=== PATIENT | male | born 1970 | race Two or more races ===

== ENCOUNTER 2024-03-12 18:26 | Inpatient (IN) | payer MEDICAID, OTHER ==
[~2024-03-12] VITALS: Ht 165.1 cm; Wt 62.4 kg
--- NOTE | 2024-03-12 19:52 | ED.PDOC ---
GI ASSESSMENT HPI Comments HPI: Poor Historian. 53-year-old homeless male presents to the emergency department for evaluation of two day history of periumbilical abdominal pain constant nonradiating with the associated nausea vomiting and diarrhea nonbloody nonbilious. He states the vomit is food content and the diarrhea is yellow in color. Denies any alleviating or precipitating factors. VITALS: Temp: 98.0 F RR: 16 02 sat : 98 % on room air HR: 93 BP: 125/90 PMH: denies PSH: denies Social history: endorses tobacco use, denies ETOH use, denies drug use Medications: denies Allergies: denies REVIEW OF SYSTEMS: CONSTITUTIONAL: Denies acute: fever, diaphoresis, chills, generalized weakness. HEAD: Denies acute: headache, photophobia Eyes: Denies acute: Double vision, vision loss, eye pain, eye discharge. EARS: Denies acute: tinnitus, hearing loss, ear discharge, ear pain, THROAT: Denies acute: sore throat, swelling, difficulty swallowing , pain with swa llowing, change in voice. NECK: Denies acute: neck pain, neck swelling, stiff neck. HEART: Denies acute : chest pain, palpitations, LUNGS: Denies acute: SOB, wheezing, cough, hemoptysis ABDOMEN: Denies acute: , melena , hematemesis, hematochezia SKIN: Denies acute: rash, redness, lesions, itchiness. EXTREMITIES: Denies acute: calf pain, numbness, tingling, weakness, denies pain in extremity. Denies acute: Low back pain. Neuro: Denies acute: focal neurological deficit, motor or sensory focal neurological deficit, tremors, seizure like activity, confusion, dizziness, change in mental status, loss of bowel or bladder function, cauda equina like symptoms. : Denies acute: dysuria, hematuria, flank pain, increase in urinary frequency. PSYCH: Denies acute: hallucination, suicidal ideation, homicidal ideation. PHYSICAL EXAM: General: no acute distress, awake and alert. Head: normocephalic, atraumatic. Neck: supple, trachea is midline, no swelling. Throat: Normal phonation. Eyes:, no erythema, no purulent discharge, no proptosis, no icterus. Heart: regular rate, regular rhythm, no significant murmur appreciated. Lungs: no apparent respiratory distress, Able to speak in full sentences. No wheezing, no rhonchi, no crackles. No stridors Clear to auscultation bilaterally. Abdomen: Periumbilical tender to palpation, non distended, soft, no guarding, no rebound, + bowel sounds. Neuro: Awake, Alert, oriented to name, self, situation, follows commands GCS=15. Speech is normal. Skin: no petechia, no purpura, no cyanosis, non-pale, not jaundice. Lower extremities: --no - Pitting edema no deformity, no focal swelling, no calf TTP. Makes eye contact. moves all four extremities. Face: no apparent facial droop. Ambulating in the ED independently. Chief Complaint: Abdominal Pain Time Seen by MD: 18:53 Reviewed Notes: Nurses Notes, Medications, Allergies Allergies: Coded Allergies: NO KNOWN ALLERGIES (Unverified , 03/12/24) Information Source: Patient Mode of Arrival: Ambulatory Was a procedure done? Was a procedure done?: No X-Ray, Labs, Meds, VS Vital Signs Date Time Temp Pulse Resp B/P (MAP) Pulse Ox O2 Delivery O2 Flow Rate FiO2 03/12/24 19:29 98.0 93 16 125/90 (102) 98 Lab Test 03/12/24 20:14 Range/Units White Blood Count Pending Red Blood Count Pending Hemoglobin Pending Hematocrit Pending Mean Corpuscular Volume Pending Mean Corpuscular Hemoglobin Pending Mean Corpuscular Hemoglobin Concent Pending Red Cell Distribution Width Pending Platelet Count Pending Mean Platelet Volume Pending Neutrophils (%) (Auto) Pending Lymphocytes (%) (Auto) Pending Monocytes (%) (Auto) Pending Basophils (%) (Auto) Pending Neutrophils # (Auto) Pending Lymphocytes # (Auto) Pending Monocytes # (Auto) Pending Sodium Level Pending Potassium Level Pending Chloride Level Pending Carbon Dioxide Level Pending Anion Gap Pending Blood Urea Nitrogen Pending Creatinine Pending Glomerular Filtration Rate Calc Pending BUN/Creatinine Ratio Pending Serum Glucose Pending Lactic Acid Level Pending Calcium Level Pending Total Bilirubin Pending Aspartate Amino Transferase (AST) Pending Alanine Aminotransferase (ALT) Pending Alkaline Phosphatase Pending Troponin I High Sensitivity Pending Total Protein Pending Albumin Pending Lipase Pending [address] - [address] Ph: [phone] DIAGNOSTIC IMAGING Diagnostic Imaging Report : [id number] Signed PATIENT: FOSTER LAST ACCT: [id number] UNIT: [id number] : 1970 LOC: ER ROOM / BED: / AGE / SEX: 53 / M ADM STATUS: REG ER SERVICE 28 ORDERING PHYSICIAN: MOE LOPEZ DO PROCEDURE(s): ABPL - CT AB PEL WO CON-NO ORAL OR IV REASON: abd pain ORDER NUMBER(s): [id number], ACCESSION NUMBER(s): [id number] Exam: CT CT AB PEL WO CON-NO ORAL OR IV History: abd pain Comparison Study: None available at time of dictation. TECHNIQUE: Multidetector CT of the abdomen and pelvis without contrast. Axial, coronal and sagittal multiplanar reformats were obtained from the axial data set by the technologist. Radiation Dose Information: CT Dose: CTDI volume is 5.74 mGy. Dose-length product is 321.93 mGy*cm FINDINGS: The lung bases are clear. Partially visualized heart is unremarkable. Trace pericardial effusion. Liver, spleen, gallbladder, pancreas and adrenal glands are unremarkable. Punctate nonobstructing bilateral renal calculi. Mild left pelviectasis. Otherwise, kidneys, and ureters unremarkable. Wall thickening of the urinary bladder. Prostate measures 3.6 x 5 x 3.6 cm . Stomach is unremarkable. Fluid-filled mildly distended mid small bowel loops measuring up to 3.2 cm with no definite transition point. Appendix is not definitely visualized. Gas-filled nondistended transverse colon with fluid- filled nondistended cecum and ascending colon. No evidence of intraperitoneal free air or free fluid. No evidence of aortic aneurysm. No significant mesenteric lymphadenopathy. The soft tissues unremarkable. No destructive osseous lesions are noted. IMPRESSION: Significant wall thickening of the urinary bladder most prominent anteriorly . Correlate for neoplasm versus cystitis. Fluid-filled mildly distended mid small bowel loops measuring up to 3.2 cm with no definite transition point which may be due to ileus / bowel obstruction. Punctate nonobstructing bilateral renal calculi with mild left pelviectasis. No obstructing calculus is noted. This Appendix is not definitely visualized. Without visualization of the appendix, can not exclude acute appendicitis. ATED BY: LISA PALACIOS DO DICTATED DATE/TIME: 03/12/242013 SIGNED BY: LISA PALACIOS DO SIGNED DATE/TIME: 03/12/242013 CC: Time of 1ST Reevaluation: 20:28 Reevaluation 1ST: Improved Patient Education/Counseling: Diagnosis, Treatment Family Education/Counseling: No Family Present Comments Based on CT scan findings, patient will be admitted to the hospital for surgical consultation MDM: Patient presented with the above HPI.----- abdominal pain -workup was initiated. patient was found with the above mentioned diagnosis. the following medications were ordered: zofran, IV fluids, the following tests were ordered: troponin x3, EKG x1, UA, lipase, drug screen, lactic acid, CBC, CMP, CT abdomen and pelvis w/o contrast Patient ED course and VS have been stabilized. Patient has been reassessed in the ED and remained in a stable condition. Patient has been observed in the ED adequate length of time to insure improvement/stability. Escalation of care considered: Consideration of escalation to observation or admission. patient was ADMITTED to the medicine team for further evaluation and treatment of their presentation. All the reports of any imaging studies that were ordered by myself were reviewed by myself. Departure 1 Departure Time of Disposition: 20:26 Impression: Primary Impression: Abdominal pain Additional Impressions: Abnormal finding on CT scan Nausea and vomiting Homelessness Disposition: ADMITTED INPATIENT Admit to: Tele Condition: Guarded Discharged With: Self I personally scribed for MOE LOPEZ DO ([email or web address]) on 03/12/24 at 19:52. Electronically submitted by Caleb Broussard (IRIS). I personally scribed for MOE LOPEZ DO ([email or web address]) on 03/12/24 at 20:48. Electronically submitted by Caleb Broussard (IRIS). OME LOPEZ DO Mar 12, 2024 19:52
--- NOTE | 2024-03-12 20:16 | DVH ---
Exam: CT CT AB PEL WO CON-NO ORAL OR IV History: abd pain Comparison Study: None available at time of dictation. TECHNIQUE: Multidetector CT of the abdomen and pelvis without contrast. Axial, coronal and sagittal m ultiplanar reformats were obtained from the axial data set by the technologist. Radiation Dose Information: CT Dose: CTDI volume is 5.74 mGy. Dose-length product is 321.93 mGy*cm FINDINGS: The lung bases are clear. Partially visualized heart is unremarkable. Trace pericardial effusion. Liver, spleen, gallbladder, pancreas and adrenal glands are unremarkable. Punctate nonobstructing bilateral renal calculi. Mild left pelviectasis. Otherwise, kidneys, and uret ers unremarkable. Wall thickening of the urinary bladder. Prostate measures 3.6 x 5 x 3.6 cm . Stomach is unremarkable. Fluid-filled mildly distended mid small bowel loops measuring up to 3.2 cm with no definite transition point. Appendix is not definitely visualized. Gas-filled nondistended tra nsverse colon with fluid-filled nondistended cecum and ascending colon. No evidence of intraperitoneal free air or free fluid. No evidence of aortic aneurysm. No significant mesenteric lymphadenopathy. The soft tissues unremarkable. No destructive osseous lesions are noted. IMPRESSION: Significant wall thickening of the urinary bladder most prominent anteriorly . Correlate for neoplas m versus cystitis. Fluid-filled mildly distended mid small bowel loops measuring up to 3.2 cm with no definite transiti on point which may be due to ileus / bowel obstruction. Punctate nonobstructing bilateral renal calculi with mild left pelviectasis. No obstructing calculus is noted. This Appendix is not definitely visualized. Without visualization of the appendix, can not exclude acute appendicitis.
[2024-03-12 20:49] LABS: Basophils # (auto) 0 10 ^3/uL (0-0.2); Basophils % (auto) 0.4 % (0.0-2.0); Eosinophils # (auto) 0.2 10 ^3/uL (0-0.8); Eosinophils % (auto) 2.3 % (0.0-7.0); Hematocrit 45.1 % (41.0-53.0); Hemoglobin 14.9 g/dL (13.5-17.5); Lymphocytes # (auto) 2.4 10 ^3/uL (0.4-5.4); Lymphocytes % (auto) 28.6 % (10.0-50.0); Mean Corpuscular Hemoglobin 27.4 pg (28.0-32.0); Mean Corpuscular Hgb Conc. 33.1 g/dL (32.0-36.0); Mean Corpuscular Volume 82.7 fL (80.0-100.0); Monocytes # (auto) 0.8 10 ^3/uL (0-1.3); Monocytes % (auto) 9.5 % (0.0-12.0); Neutrophils # (auto) 4.9 10 ^3/uL (1.6-8.6); Neutrophils % (auto) 59.2 % (37.0-80.0); Platelet Count (auto) 317 10^3/uL (140-450); Red Blood Cells 5.45 10^6/uL (4.5-5.90); Red Cell Distribution Width 13.3 % (11.8-14.3); White Blood Cell 8.3 10^3/uL (4.4-10.8)
[2024-03-12 21:05] LABS: Alanine Aminotransferase 39 U/L (7-40); Alkaline Phosphatase 106 U/L (46-116); Anion Gap 9 (5-15); BUN/Creatinine Ratio 23.5 (10.0-20.0); Blood Urea Nitrogen 19 mg/dL (9-23); Calcium 9.4 mg/dL (8.7-10.4); Carbon Dioxide 23 mmol/L (20-31); Chloride 103 mmol/L (98-107); Potassium 3.8 mmol/L (3.5-5.1)
[2024-03-12 21:06] LABS: Albumin 4.1 g/dL (3.2-4.8); Aspartate Aminotransferase 23 U/L (13-40); Bilirubin, Total 0.5 mg/dL (0.2-1.0)
[2024-03-12 21:08] LABS: Glucose 118 mg/dL (74-106); Sodium 135 mmol/L (136-145)
[2024-03-12 21:35] LABS: Lipase 36 U/L (12-53)
[2024-03-13] MEDS: SODIUM CHLORIDE 0.9% 1,000 ML IV ONE (00:34)
[2024-03-13] MEDS: ONDANSETRON HCL 4 MG/2 ML VIAL IV ONE (00:38)
[2024-03-13 02:02] VITALS: PULSE 92; RESP 30; O2SAT 100
[2024-03-13 03:00] LABS: Urine WBC None Seen /hpf (0 - 3)
[2024-03-13] MEDS ORDERED: ACETAMINOPHEN 325 MG TAB PO PRN (03:00)
[2024-03-13] MEDS ORDERED: MORPHINE SULFATE INJ 2 MG/ml SYRG IV PRN ×2 (03:00)
[2024-03-13] MEDS ORDERED: NITROGLYCERIN 0.4 MG SL TAB SL PRN (03:00)
[2024-03-13] MEDS ORDERED: ONDANSETRON HCL 4 MG/2 ML VIAL IV PRN (03:00)
[2024-03-13] MEDS ORDERED: DOCUSATE SOD 100 MG CAP PO PRN (03:00)
[2024-03-13] MEDS ORDERED: HYDROcodone-ACET 5/325MG TAB PO PRN (03:00)
--- NOTE | 2024-03-13 03:10 | DVHHP2 ---
History of Present Illness Reason for Visit: Acute abdominal pain History of Present Illness The patient is a 53-year-old male who denies past medical history presented to [facility] ED with complaint of acute abdominal pain. Patient reports symptoms progressively get worse with periumbilical abdominal pain, constant, nonradiating associated nausea, vomiting, diarrhea, getting worse today that prompted this visit. Patient was seen and evaluated in the ED, laboratory data shows WBC 8.3, platelets 317, sodium 135, potassium 3.8, BUN 19, creatinine 0.81, glucose 118, troponin 3, lipase 36, blood pressure 146/89, heart rate 85, temperature 98.5 F, O2 saturation 99% on room air. Abdomen/pelvis CT revealing wall thickening of the urinary bladder most prominent anteriorly, correlate for neoplasm versus cystitis; fluid-filled mildly distended mild small bowel loops measuring up to 3.2 cm with no definite transition point which may be due to ileus/bowel obstruction. Please see medication orders section in the computer. On my assessment, patient denied chest pain, no headache, no dizziness, no shortness of breath, abdominal pain, diarrhea, nausea or vomiting at this moment, no fever, no chills. Patient was admitted for further evaluation and medical management. Past Medical History Denies past medical history Past Surgical History Denies all surgeries Family History Reviewed, noncontributory to the management of this case. Past Social History The patient lives at home, denies smoking, alcohol or illicit drugs abuse. Review of Systems Constitutional: No: Fever, Chills, Sweats, Weakness, Malaise, Other Eyes: No: Pain, Vision change, Conjunctivae inflammation, Eyelid inflammation, Other, Redness ENT: No: Ear pain, Ear discharge, Nose pain, Nose discharge, Nose congestion, M outh pain, Mouth swelling, Throat pain, Throat swelling, Other Respiratory: No: Cough, Dry, Shortness of breath, SOB with excertion, Wheezing, Hemoptysis, Pleuritic Pain, Sputum, Wheezing, Other Cardiovascular: No: Chest Pain, Palpitations, Orthopnea, Paroxysmal Noc. Dyspnea, Edema, Lt Headedness, Other Gastrointestinal: Nausea, Vomiting, Abdominal Pain, Diarrhea; No: Constipation, Melena, Hematochezia, Other Genitourinary: No Dysuria, No Frequency, No Incontinence, No Hematuria, No R etention, No Other Musculoskeletal: No: other, neck pain, shoulder pain, arm pain, back pain, hand pain, leg pain, foot pain Skin: No: Rash, Lesions, Jaundice, Bruising, Other Neurological: No: Weakness, Numbness, Incoordination, Change in speech, Confusion, Seizures, Other Allergies: Coded Allergies: NO KNOWN ALLERGIES (Unverified , 03/12/24) Exam Vital Signs Vital Signs Date Time Temp Pulse Resp B/P (MAP) Pulse Ox O2 Delivery O2 Flow Rate FiO2 03/13/24 00:28 85 18 99 Room Air 03/13/24 00:28 98.5 146/89 (108) 98.5 General Appearance: Alert, Oriented X3, Cooperative, No acute distress HEENT: Atraumatic, PERRLA, EOMI, Mucous membr. moist/pink Respiratory: Clear to auscultation, Normal air movement Cardiovascular: Regular rate, Normal S1, Normal S2, No murmurs Abdominal: Normal bowel sounds, Soft, No hepatospenomegaly, No masses, Other (Reports tenderness) Extremities: No clubbing, No cyanosis, No edema, Normal pulses, No tenderness/swelling Skin: No rashes, No breakdown, No significant lesion Neuro: Normal gait, Normal speech, Strength at 5/5 X4 ext, Normal tone, Sensation intact, Cranial nerves 3-12 NL, Reflexes 2+ Psych/Mental Status: Mental status NL, Mood NL Labs/Xrays Labs Test 03/13/24 01:24 03/12/24 20:14 Range/Units Troponin I High Sensitivity < 3 L </=54 ng/L White Blood Count 8.3 4.4-10.8 10^3/uL Red Blood Count 5.45 4.5-5.90 10^6/uL Hemoglobin 14.9 13.5-17.5 g/dL Hematocrit 45.1 41.0-53.0 % Mean Corpuscular Volume 82.7 80.0-100.0 fL Mean Corpuscular Hemoglobin 27.4 L 28.0-32.0 pg Mean Corpuscular Hemoglobin Concent 33.1 32.0-36.0 g/dL Red Cell Distribution Width 13.3 11.8-14.3 % Platelet Count 317 140-450 10^3/uL Mean Platelet Volume 7.2 6.9-10.8 fL Neutrophils (%) (Auto) 59.2 37.0-80.0 % Lymphocytes (%) (Auto) 28.6 10.0-50.0 % Monocytes (%) (Auto) 9.5 0.0-12.0 % Eosinophils (%) (Auto) 2.3 0.0-7.0 % Basophils (%) (Auto) 0.4 0.0-2.0 % Neutrophils # (Auto) 4.9 1.6-8.6 10 ^3/uL Lymphocytes # (Auto) 2.4 0.4-5.4 10 ^3/uL Monocytes # (Auto) 0.8 0-1.3 10 ^3/uL Eosinophils # (Auto) 0.2 0-0.8 10 ^3/uL Basophils # (Auto) 0 0-0.2 10 ^3/uL Nucleated Red Blood Cells 0.0 % Sodium Level 135 L 136-145 mmol/L Potassium Level 3.8 3.5-5.1 mmol/L Chloride Level 103 98-107 mmol/L Carbon Dioxide Level 23 20-31 mmol/L Anion Gap 9 5-15 Blood Urea Nitrogen 19 9-23 mg/dL Creatinine 0.81 0.700-1.30 mg/dL Glomerular Filtration Rate Calc 107 >90 mL/min BUN/Creatinine Ratio 23.5 H 10.0-20.0 Serum Glucose 118 H 74-106 mg/dL Lactic Acid Level 2.0 0.4-2.0 mmol/L Calcium Level 9.4 8.7-10.4 mg/dL Total Bilirubin 0.5 0.2-1.0 mg/dL Aspartate Amino Transferase (AST) 23 13-40 U/L Alanine Aminotransferase (ALT) 39 7-40 U/L Alkaline Phosphatase 106 46-116 U/L Total Protein 6.0 5.7-8.2 g/dL Albumin 4.1 3.2-4.8 g/dL Lipase 36 12-53 U/L PATIENT: FOSTER LAST ACCT: [id number] UNIT: [id number] : 1970 LOC: ER ROOM / BED: / AGE / SEX: 53 / M ADM STATUS: REG ER SERVICE 28 ORDERING PHYSICIAN: MOE LOPEZ DO PROCEDURE(s): ABPL - CT AB PEL WO CON-NO ORAL OR IV REASON: abd pain ORDER NUMBER(s): [id number], ACCESSION NUMBER(s): [id number] Exam: CT CT AB PEL WO CON-NO ORAL OR IV History: abd pain Comparison Study: None available at time of dictation. TECHNIQUE: Multidetector CT of the abdomen and pelvis without contrast. Axial, coronal and sagittal multiplanar reformats were obtained from the axial data set by the technologist. Radiation Dose Information: CT Dose: CTDI volume is 5.74 mGy. Dose-length product is 321.93 mGy*cm FINDINGS: The lung bases are clear. Partially visualized heart is unremarkable. Trace pericardial effusion. Liver, spleen, gallbladder, pancreas and adrenal glands are unremarkable. Punctate nonobstructing bilateral renal calculi. Mild left pelviectasis. Otherwise, kidneys, and ureters unremarkable. Wall thickening of the urinary bladder. Prostate measures 3.6 x 5 x 3.6 cm . Stomach is unremarkable. Fluid-filled mildly distended mid small bowel loops measuring up to 3.2 cm with no definite transition point. Appendix is not definitely visualized. Gas-filled nondistended transverse colon with fluid-f illed nondistended cecum and ascending colon. No evidence of intraperitoneal free air or free fluid. No evidence of aortic aneurysm. No significant mesenteric lymphadenopathy. The soft tissues unremarkable. No destructive osseous lesions are noted. IMPRESSION: Significant wall thickening of the urinary bladder most prominent anteriorly. Correlate for neoplasm versus cystitis. Fluid-filled mildly distended mid small bowel loops measuring up to 3.2 cm with no definite transition point which may be due to ileus / bowel obstruction. Punctate nonobstructing bilateral renal calculi with mild left pelviectasis. No obstructing calculus is noted. This Appendix is not definitely visualized. Without visualization of the appendix, can not exclude acute appendicitis. Assessment/Plan Assessment/Plan Acute abdominal pain Homelessness Nausea and vomiting Plan 1. Admit to med surge unit 2. Breathing treatment 3. Pain control management 4. Management of fluids and electrolytes 5. Consultation for hospitalist 6. Diagnostic tests abdomen/pelvis CT 7. DVT prophylaxis-on SCDs 8. Repeat labs CBC, CMP in a.m. 9. Continue with current medical management 10. Treatment plan discussed with patient and RN. Patient verbalized understanding. Plan discussed with: Patient, Other (RN) My Orders Orders - MALIA TORRES DNP Procedure Category Date Status Time Complete Blood Count LAB 03/13/24 Transmitted 04:00 Comprehensive LAB 03/13/24 Transmitted Metabolic Panel 04:00 Admit ADMIT 03/13/24 Transmitted 02:50 Allergies CONSTANTIN 03/13/24 Transmitted 02:50 Code Status CODE 03/13/24 Transmitted 02:50 0.9% Ns 1000 Ml PHA 03/13/24 Transmitted 03:00 Oxygen Per Hour RT 03/13/24 Transmitted 02:50 Hydrocodone-Acet PHA 03/13/24 Transmitted 5/325mg Tab ([place] 03:00 Ondansetron Hcl PHA 03/13/24 Transmitted (Zofran) 03:00 Docusate Sodium PHA 03/13/24 Transmitted Capsule (Colace 03:00 Complete Blood Count LAB 03/14/24 Verified 04:00 Comprehensive LAB 03/14/24 Verified Metabolic Panel 04:00 Condition: Serious CONSTANTIN 03/13/24 Transmitted 02:50 Acetaminophen Tablet PHA 03/13/24 Transmitted (Tylenol Tablet) 03:00 Clear Liq Diet DIET 03/13/24 Transmitted Breakfast Bedrest With Bathroom CONSTANTIN 03/13/24 Transmitted Privileg 02:50 Morphine Sulfate PHA 03/13/24 Transmitted Injection 03:00 Sequential CONSTANTIN 03/13/24 Transmitted Compression Device Nitroglycerin PHA 03/13/24 Transmitted Sublingual (Ntrostat 03:00 Morphine Sulfate PHA 03/13/24 Transmitted Injection 03:00 Notify Of Changes [facility] 03/13/24 Transmitted From Base 02:50 Emergency Dysrhythmia [facility] 03/13/24 Transmitted Protocol 02:50 Oxygen By Nasal RT 03/13/24 Transmitted Cannula 02:50 Problem List: (1) Acute abdominal pain (2) Homelessness (3) Nausea and vomiting Date of Service: Mar 13, 2024 Billing Provider: MALIA TORRES DNP Common Visit Codes: [id number] INP/OBS CARE (MOD) MALIA TORRES DNP Mar 13, 2024 03:10
[2024-03-13 03:12] LABS: Urine Bacteria FEW /hpf (None Seen); Urine Blood Negative /uL (Negative); Urine Clarity Clear (Clear); Urine Color Colorless (Yellow); Urine Protein, UAD Negative (Negative); Urine Specific Gravity 1.004 (1.001-1.035); Urine Urobilinogen Normal (Negative)
[2024-03-13] MEDS: SODIUM CHLORIDE 0.9% 1,000 ML IV SCH (03:15)
[2024-03-13 03:28] LABS: Amphetamine Screen, Urine Neg (NEGATIVE)
[2024-03-13 03:30] LABS: Barbiturate Scree,Urine Neg (NEGATIVE); Benzodiazephine Screen, Urine Neg (NEGATIVE); Cannabinoid Screen, Urine Neg (NEGATIVE); Cocaine Screen, Urine Neg (NEGATIVE); Opiate Scree,Urine Neg (NEGATIVE); Phencyclidine Screen, Urine Neg (NEGATIVE)
[2024-03-13 04:56] LABS: Basophils # (auto) 0 10 ^3/uL (0-0.2); Basophils % (auto) 0.7 % (0.0-2.0); Eosinophils # (auto) 0.4 10 ^3/uL (0-0.8); Eosinophils % (auto) 6.1 % (0.0-7.0); Hematocrit 41.7 % (41.0-53.0); Hemoglobin 13.7 g/dL (13.5-17.5); Lymphocytes # (auto) 2.2 10 ^3/uL (0.4-5.4); Lymphocytes % (auto) 32.9 % (10.0-50.0); Mean Corpuscular Hemoglobin 27.6 pg (28.0-32.0); Mean Corpuscular Hgb Conc. 32.8 g/dL (32.0-36.0); Monocytes # (auto) 0.7 10 ^3/uL (0-1.3); Monocytes % (auto) 10.6 % (0.0-12.0); Neutrophils # (auto) 3.4 10 ^3/uL (1.6-8.6); Neutrophils % (auto) 49.7 % (37.0-80.0); Nucleated Red Blood Cells % 0.3 %; Platelet Count (auto) 273 10^3/uL (140-450); Red Blood Cells 4.97 10^6/uL (4.5-5.90); Red Cell Distribution Width 13.6 % (11.8-14.3); White Blood Cell 6.8 10^3/uL (4.4-10.8)
[2024-03-13 05:48] LABS: Alanine Aminotransferase 31 U/L (7-40); Alkaline Phosphatase 93 U/L (46-116); Calcium 8.9 mg/dL (8.7-10.4); Potassium 3.5 mmol/L (3.5-5.1)
[2024-03-13 05:49] LABS: Albumin 3.6 g/dL (3.2-4.8); Aspartate Aminotransferase 17 U/L (13-40); Sodium 139 mmol/L (136-145)
[2024-03-13 06:02] LABS: Anion Gap 12 (5-15)
[2024-03-13 06:04] LABS: Bilirubin, Total 0.3 mg/dL (0.2-1.0); Carbon Dioxide 18 mmol/L (20-31); Chloride 109 mmol/L (98-107); Glucose 115 mg/dL (74-106); Total Protein 5.3 g/dL (5.7-8.2)
[2024-03-13 06:18] LABS: BUN/Creatinine Ratio 14.1 (10.0-20.0); Blood Urea Nitrogen 10 mg/dL (9-23)
[2024-03-13 06:58] VITALS: BP 124/80; PULSE 73; RESP 16; TEMP 98.1; O2SAT 98
[2024-03-13 08:00] VITALS: PULSE 88; RESP 17; O2SAT 98
--- NOTE | 2024-03-13 13:17 | DVHPN2 ---
Subjective 53-year-old male with no past medical history was admitted for abdominal pain Workup here was negative He is homeless He feels better today Changes from previous H/P or p: Changes Eyes: No Pain, No Vision change, No Conjunctivae inflammation, No Eyelid inflammation, No Other, No Redness ENT: No Ear pain, No Ear discharge, No Nose pain, No Nose discharge, No Nose congestion, No Mouth pain, No Mouth swelling, No Throat pain, No Throat swelling, No Other Cardiovascular: No Chest Pain, No Palpitations, No Orthopnea, No Paroxysmal Noc. Dyspnea, No Edema, No Lt Headedness, No Other Respiratory: No Cough, No Dry, No Shortness of breath, No SOB with excertion, No Wheezing, No Hemoptysis, No Pleuritic Pain, No Sputum, No Other Gastrointestinal: Nausea, Vomiting, Abdominal Pain, Diarrhea; No Constipation, No Melena, No Hematochezia, No Other Genitourinary: No Dysuria, No Frequency, No Incontinence, No Hematuria, No Retention, No Other Musculoskeletal: No other, No neck pain, No shoulder pain, No arm pain, No back pain, No hand pain, No leg pain, No foot pain Skin: No Rash, No Lesions, No Jaundice, No Bruising, No Other Objective Vitals Vital Signs Date Time Temp Pulse Resp B/P (MAP) Pulse Ox O2 Delivery O2 Flow Rate FiO2 03/13/24 08:00 88 17 98 Room Air* 0 21 03/13/24 06:58 98.1 124/80 (95) 98.1 Intake/Output Intake and Output 03/13/24 07:00 Intake Total 1120 ml Balance 1120 ml Intake IV Total 1120 ml General Appearance: Alert, Oriented X3, Cooperative Lungs: Clear to auscultation Cardiovascular: Regular rate, Normal S1, Normal S2 Abdomen: Normal bowel sounds, Soft, No tenderness Extremities: No edema Medications Current Medications Medications Dose Ordered Sig/Bhaskar Route Start Time Stop Time Status Last Admin Dose Admin Sodium Chloride 1,000 ml @ 60 mls/hr [id number] IV 03/13/24 03:00 03/13/24 03:15 60 MLS/HR Acetaminophen/ Hydrocodone Bitart 1 tab Q4HP PRN PO 03/13/24 03:00 Ondansetron HCl 4 mg Q4HP PRN IV 03/13/24 03:00 Docusate Sodium 100 mg BIDPRN PRN PO 03/13/24 03:00 Acetaminophen 650 mg Q6HP PRN PO 03/13/24 03:00 Morphine Sulfate 2 mg Q4HPRN PRN IV 03/13/24 03:00 Nitroglycerin 0.4 mg Q5MINP PRN SL 03/13/24 03:00 Morphine Sulfate 2 mg Q30M PRN IV 03/13/24 03:00 Laboratory Results Laboratory Tests 03/13/24 04:37 Chemistry Test 03/12/24 20:14 03/13/24 04:37 Albumin 4.1 g/dL (3.2-4.8) 3.6 g/dL (3.2-4.8) Calcium Level 9.4 mg/dL (8.7-10.4) 8.9 mg/dL (8.7-10.4) Total Protein 6.0 g/dL (5.7-8.2) 5.3 g/dL (5.7-8.2) L Lipid panel Test 03/12/24 20:14 Lipase 36 U/L (12-53) LFT Test 03/12/24 20:14 03/13/24 04:37 Alanine Aminotransferase (ALT) 39 U/L (7-40) 31 U/L (7-40) Alkaline Phosphatase 106 U/L (46-116) 93 U/L (46-116) Aspartate Amino Transferase (AST) 23 U/L (13-40) 17 U/L (13-40) Total Bilirubin 0.5 mg/dL (0.2-1.0) 0.3 mg/dL (0.2-1.0) Urinalysis Test 03/13/24 02:33 Urine Color Colorless (Yellow) Urine Clarity Clear (Clear) Urine pH 6.0 (5.0-9.0) Urine Specific [place] 1.004 (1.001-1.035) Urine Protein Negative (Negative) Urine Ketones Negative (Negative) Urine Blood Negative /uL (Negative) Urine Nitrite Negative (Negative) Urine Bilirubin Negative (Negative) Urine Urobilinogen Normal mg/dL (Negative) Urine Leukocyte Esterase Negative /uL (Negative) Urine RBC <1 /hpf (0 - 3) Urine WBC None seen /hpf (0 - 3) Urine Squamous Epithelial Cells None seen /hpf (<5) Urine Bacteria Few /hpf (None Seen) H Urine Glucose Normal mg/dL (Normal) Assessment/Plan Assessment/Plan Unspecified abdominal pain Homeless Dehydration Hyponatremia Plan 03/13/2024: Continue IV fluids Start physical therapy May shower Consult social media marketing specialist to provide resources for homelessness Full code Advance directives discussed for 15 minute Plan discussed with: Patient Date of Service: Mar 13, 2024 Billing Provider: GRZEGORZ CROCKER MD Common Visit Codes: [id number] INP/OBS CARE(HIGH) Secondary Visit Codes: [id number] CARE PLAN 30 MINUTES GRZEGORZ CROCKER MD Mar 13, 2024 13:17
[2024-03-13 14:54] VITALS: BP 117/75; PULSE 89; RESP 17; TEMP 98.4; O2SAT 97
[2024-03-13 17:00] VITALS: BP 139/80; PULSE 74; RESP 17; TEMP 98.6; O2SAT 99
[2024-03-13 21:00] VITALS: BP 116/76; PULSE 78; RESP 13; TEMP 98.5; O2SAT 97
[2024-03-14 00:59] VITALS: BP 122/84; PULSE 76; RESP 13; TEMP 98; O2SAT 96
[2024-03-14 05:00] VITALS: BP 128/81; PULSE 80; RESP 15; TEMP 98; O2SAT 95
[2024-03-14 06:07] LABS: Basophils # (auto) 0 10 ^3/uL (0-0.2); Basophils % (auto) 0.5 % (0.0-2.0); Eosinophils # (auto) 0.4 10 ^3/uL (0-0.8); Eosinophils % (auto) 5.2 % (0.0-7.0); Hematocrit 42.6 % (41.0-53.0); Hemoglobin 14.4 g/dL (13.5-17.5); Lymphocytes # (auto) 2.2 10 ^3/uL (0.4-5.4); Lymphocytes % (auto) 32.7 % (10.0-50.0); Mean Corpuscular Hemoglobin 27.7 pg (28.0-32.0); Mean Corpuscular Hgb Conc. 33.8 g/dL (32.0-36.0); Mean Corpuscular Volume 82.1 fL (80.0-100.0); Monocytes # (auto) 0.7 10 ^3/uL (0-1.3); Monocytes % (auto) 10.3 % (0.0-12.0); Neutrophils # (auto) 3.5 10 ^3/uL (1.6-8.6); Neutrophils % (auto) 51.3 % (37.0-80.0); Nucleated Red Blood Cells % 0.1 %; Platelet Count (auto) 288 10^3/uL (140-450); Red Blood Cells 5.19 10^6/uL (4.5-5.90); Red Cell Distribution Width 13.4 % (11.8-14.3); White Blood Cell 6.8 10^3/uL (4.4-10.8)
[2024-03-14 06:16] LABS: Alanine Aminotransferase 35 U/L (7-40); Alkaline Phosphatase 95 U/L (46-116); Anion Gap 6 (5-15); Aspartate Aminotransferase 16 U/L (13-40); Calcium 9.5 mg/dL (8.7-10.4); Carbon Dioxide 28 mmol/L (20-31); Chloride 106 mmol/L (98-107); Glucose 93 mg/dL (74-106); Potassium 3.7 mmol/L (3.5-5.1); Sodium 140 mmol/L (136-145)
[2024-03-14 06:17] LABS: Bilirubin, Total 0.5 mg/dL (0.2-1.0); Total Protein 5.9 g/dL (5.7-8.2)
[2024-03-14 06:22] LABS: Blood Urea Nitrogen 8 mg/dL (9-23)
[2024-03-14 08:00] VITALS: PULSE 73; RESP 18; O2SAT 100
[2024-03-14 11:23] VITALS: BP 121/91; PULSE 62; RESP 16; TEMP 36.7; O2SAT 100
--- NOTE | 2024-03-14 12:07 | DVHDS2 ---
Discharge Summary Date of Admission Mar 13, 2024 at 02:50 Date of Discharge: Mar 14, 2024 Labs/Diagnostic Data: Laboratory Results Test 03/14/24 05:20 03/13/24 02:33 03/13/24 01:24 03/12/24 20:14 White Blood Count 6.8 10^3/uL (4.4-10.8) Red Blood Count 5.19 10^6/uL (4.5-5.90) Hemoglobin 14.4 g/dL (13.5-17.5) Hematocrit 42.6 % (41.0-53.0) Mean Corpuscular Volume 82.1 fL (80.0-100.0) Mean Corpuscular Hemoglobin 27.7 pg (28.0-32.0) Mean Corpuscular Hemoglobin Concent 33.8 g/dL (32.0-36.0) Red Cell Distribution Width 13.4 % (11.8-14.3) Platelet Count 288 10^3/uL (140-450) Mean Platelet Volume 7.2 fL (6.9-10.8) Neutrophils (%) (Auto) 51.3 % (37.0-80.0) Lymphocytes (%) (Auto) 32.7 % (10.0-50.0) Monocytes (%) (Auto) 10.3 % (0.0-12.0) Eosinophils (%) (Auto) 5.2 % (0.0-7.0) Basophils (%) (Auto) 0.5 % (0.0-2.0) Neutrophils # (Auto) 3.5 10 ^3/uL (1.6-8.6) Lymphocytes # (Auto) 2.2 10 ^3/uL (0.4-5.4) Monocytes # (Auto) 0.7 10 ^3/uL (0-1.3) Eosinophils # (Auto) 0.4 10 ^3/uL (0-0.8) Basophils # (Auto) 0 10 ^3/uL (0-0.2) Nucleated Red Blood Cells 0.1 % Sodium Level 140 mmol/L (136-145) Potassium Level 3.7 mmol/L (3.5-5.1) Chloride Level 106 mmol/L (98-107) Carbon Dioxide Level 28 mmol/L (20-31) Anion Gap 6 (5-15) Blood Urea Nitrogen 8 mg/dL (9-23) Creatinine 0.73 mg/dL (0.700-1.30) Glomerular Filtration Rate Calc 110 mL/min (>90) BUN/Creatinine Ratio 11.0 (10.0-20.0) Serum Glucose 93 mg/dL (74-106) Calcium Level 9.5 mg/dL (8.7-10.4) Total Bilirubin 0.5 mg/dL (0.2-1.0) Aspartate Amino Transferase (AST) 16 U/L (13-40) Alanine Aminotransferase (ALT) 35 U/L (7-40) Alkaline Phosphatase 95 U/L (46-116) Total Protein 5.9 g/dL (5.7-8.2) Albumin 4.0 g/dL (3.2-4.8) Urine Color Colorless (Yellow) Urine Clarity Clear (Clear) Urine pH 6.0 (5.0-9.0) Urine Specific [place] 1.004 (1.001-1.035) Urine Protein Negative (Negative) Urine Ketones Negative (Negative) Urine Blood Negative /uL (Negative) Urine Nitrite Negative (Negative) Urine Bilirubin Negative (Negative) Urine Urobilinogen Normal mg/dL (Negative) Urine Leukocyte Esterase Negative /uL (Negative) Urine RBC <1 /hpf (0 - 3) Urine WBC None seen /hpf (0 - 3) Urine Squamous Epithelial Cells None seen /hpf (<5) Urine Bacteria Few /hpf (None Seen) Urine Glucose Normal mg/dL (Normal) Urine Opiates Screen Neg (NEGATIVE) Urine Fentanyl Screen Neg (NEGATIVE) Urine Barbiturates Screen Neg (NEGATIVE) Urine Phencyclidine Screen Neg (NEGATIVE) Urine Amphetamines Screen Neg (NEGATIVE) Urine Benzodiazepines Screen Neg (NEGATIVE) Urine Cocaine Screen Neg (NEGATIVE) Urine Cannabinoids Screen Neg (NEGATIVE) Troponin I High Sensitivity < 3 ng/L (</=54) Lactic Acid Level 2.0 mmol/L (0.4-2.0) Lipase 36 U/L (12-53) Other Laboratory Tests 03/14/24 05:20 Brief Hx & Hospital Course: Final diagnoses: Unspecified abdominal pain Homeless Dehydration Hyponatremia 53-year-old male who was admitted for abdominal pain, evaluation was negative CT scan of the abdomen was normal , his labs are normal His abdominal pain resolved No further tests or treatments are needed The patient is homeless and therefore the social worker school provided him with resources and he is cleared for discharge No new medications are required Follow up with PCP as soon as possible Condition at Discharge: Stable Final Diagnosis/Problems List Unspecified abdominal pain Homeless Dehydration Hyponatremia Discharge Disposition: Home SNF Discharge Will this Physician continue t: No Discharge Instruct/Medications Diet: Regular Activity: No Restrictions, As Tolerated Follow Up/Referral: PCP LUCINDA Medications: No meds Discharge Statement: "Patient was advised to return to the ER or call 911 if any headaches, dizziness, shortness of breath, chest pain, abdominal pain, bleeding, fevers, or worsening of medical condition. Patient was counseled about treatment plan, medications, possible side effects, patientverbalized understanding. All questions were answered to the best of my ability. This discharge took greater then 30 minutes in planning, reviewing documentation, counseling the patient, and discussing with other team members." ASSESSMENT ASSESSMENT Assessment Unspecified abdominal pain Homeless Dehydration Hyponatremia Date of Service: Mar 14, 2024 Billing Provider: GRZEGORZ CROCKER MD Common Visit Codes: 72401-PUL/OBS DISCH DAY >30min GRZEGORZ CROCKER MD Mar 14, 2024 12:07
== END 2024-03-14 13:10 | disposition home or self-care (01) | DRG 422 ==
LOC: ER 18:26 → OVERFLOW 03-13 02:50 → WEST WING 03-13 05:40
PROVIDERS: ADMIT Nurse Practitioner Family; ATTEND Internal Medicine Geriatric Medicine
DX: E86.0 Dehydration (principal); E87.1 Hypo-osmolality and hyponatremia; N20.0 Calculus of kidney; Z59.00 Homelessness unspecified
CPT/HCPCS: 36415; 74176; 80053; 80307; 81001; 83605; 83690; 84484; 85025; G0378; J2405

== ENCOUNTER 2024-03-15 05:55 | Emergency (ER) | payer MEDICAID ==
[~2024-03-15] VITALS: Ht 162.6 cm; Wt 65.2 kg
[2024-03-15 06:14] VITALS: BP 125/84; PULSE 85; RESP 16; O2SAT 98
--- NOTE | 2024-03-15 06:22 | ED.PDOC ---
Musculoskeletal Chief Complaint: Lower Extremity Time Seen by MD: 06:17 Allergies: Coded Allergies: NO KNOWN ALLERGIES (Unverified , 03/12/24) Home Meds No Active Prescriptions or Reported Meds Mode of Arrival: Ambulatory Integumetry: reports: others (dry skin on feet) Physical Exam Neck: Non-Tender, Normal, Normal Inspection Musculoskeletal : Apperance: Normal Skin: Warm Lymphatic: No Adenopathy Differential Diagnosis EXT Differential Diagnosis: Strain X-Ray, Labs, Meds, VS Vital Signs Date Time Temp Pulse Resp B/P (MAP) Pulse Ox O2 Delivery O2 Flow Rate FiO2 03/15/24 06:14 97.8 85 16 125/84 (98) 98 Departure 1 Departure e-Prescriptions No Active Prescriptions or Reported Meds EVI WATTERS [facility] Mar 15, 2024 06:22
[2024-03-16] MEDS ORDERED: ACET500T58 PO (04:31)
== END 2024-03-15 07:11 | disposition left against medical advice (07) ==
LOC: ER 05:55
DX: M79.672 Pain in left foot (principal); M79.671 Pain in right foot; Z53.21 Procedure and treatment not carried out due to patient leaving prior to being seen by health care provider

== ENCOUNTER 2024-03-15 10:07 | Emergency (ER) | payer MEDICAID ==
[~2024-03-15] VITALS: Ht 162.6 cm; Wt 61.7 kg
--- NOTE | 2024-03-15 12:43 | ED.PDOC ---
Musculoskeletal HPI Comments 53-year-old male patient presents to the emergency room for dry skin on bilateral feet. Patient has dry cracked skin on bilateral heels. No signs of infection noted. Patient reports that he has increased pain while walking. Patient is currently homeless. Patient states that he is trying to make it back to [place], [place]. Chief Complaint: Lower Extremity Time Seen by MD: 10:18 Reviewed Notes: Nurses Notes, Medications Allergies: Coded Allergies: NO KNOWN ALLERGIES (Unverified , 03/12/24) Home Meds No Active Prescriptions or Reported Meds Information Source: Patient Mode of Arrival: Ambulatory Past Medical History PAST MEDICAL HISTORY: Denies Surgical History: Denies all surgeries Family History Family History: Reviewed,noncontributory to illness Constitutional: denies: chills, diaphoresis, fatigue, fever, malaise, sweats, weakness, others EENTM: denies: blurred vision, double vision, ear bleeding, ear discharge, ear drainage, ear pain, ear ringing, eye pain, eye redness, hearing loss, mouth pain, mouth swelling, nasal discharge, nose bleeding, nose congestion, nose pain, photophobia, tearing, throat pain, throat swelling, voice changes, others Respiratory: denies: cough, hemoptysis, orthopnea, SOB at rest, shortness of breath, SOB with excertion, stridor, wheezing, others Cardiovascular: denies: chest pain, dizzy spells, diaphoresis, Dyspnea on exertion, edema, irregular heart beat, left arm pain, lightheadedness, palpitations, PND, syncope, others Gastrointestinal: denies: abdomen distended, abdominal pain, blood streaked bowels, constipated, diarrhea, dysphagia, difficulty swallowing, hematemesis, melena, nausea, poor appetite, poor fluid intake, rectal bleeding, rectal pain, vomiting, others Genitourinary: denies: burning, dysuria, flank pain, frequency, hematuria, incontinence, penile discharge, penile sore, pain, testicle pain, testicle swelling, urgency, others Neurological: denies: dizziness, fainting, headache, left sided numbness, left sided weakness, numbness, paresthesia, pre-existing deficit, right sided numbness, right sided weakness, seizure, speech problems, tingling, tremors, weakness, others Integumetry: reports: dryness (Bilateral heels), others (Dry cracked skin on bilateral heel) Allergic/Immunocompromised: denies: Difficulty Healing, Frequent Infections, Hives, Itching, others Hematologic/Lymphatic: denies: anemia, blood clots, easy bleeding, easy bruising, swollen glands, others Endocrine: denies: excessive hunger, excessive sweating, excessive thirst, excessive urination, flushing, intolerance to cold, intolerance to heat, u nexplained weight gain, unexplained weight loss, others Psychiatric: denies: anxiety, bipolar disorder, depression, hopeless, panic disorder, schizophrenia, sleepless, suicidal, others All Other Systems: Reviewed and Negative Physical Exam General Appearance: No Apparent Distress, Normal HEENT: Normal ENT Inspection, Pharynx Normal, TMs Normal Neck: Full Range of Motion, Non-Tender, Normal, Normal Inspection Respiratory: Chest Non-Tender, Lungs Clear, No Accessory Muscle Use, No Respiratory Distress, Normal Breath Sounds Cardiovascular: No Edema, No JVD, No Murmur, No Gallop, Normal Peripheral P ulses, Regular Rate/Rhythm Breast Exam: Deferred Gastrointestinal: No Organomegaly, Non Tender, No Pulsatile Mass, Normal Bowel Sounds, Soft Genitalia: Deferred Pelvic: Deferred Rectal: Deferred Extremities: No calf tenderness, Normal capillary refill, Normal inspection, Normal range of motion, Non-tender, No pedal edema Musculoskeletal : Apperance: Normal Neurologic: Alert, product info specialist II-XII nml as Tested, No Motor Deficits, Normal Affect, Normal Mood, No Sensory Deficits Cerebellar Function: Normal Reflexes: Normal Skin: Dry (dry , callous and cracked skin on bilateral heels, no drainage or discharge. No signs of infection), Normal Color, Warm Lymphatic: No Adenopathy Was a procedure done? Was a procedure done?: No Differential Diagnosis EXT Differential Diagnosis: Cellulitis X-Ray, Labs, Meds, VS Vital Signs Date Time Temp Pulse Resp B/P (MAP) Pulse Ox O2 Delivery O2 Flow Rate FiO2 03/15/24 13:51 17 97 Room Air* 0 21 03/15/24 13:50 98.1 100 17 123/70 (87) 97 98.1 03/15/24 10:15 98.3 109 16 113/76 (88) 97 X-Ray, Labs, Meds, VS Comment Patient advised that prescription will be sent to [facility]. Patient advised that I will be sending a urea cream. Patient advised that medication can be purchased over the counter if not approved by his insurance. Patient reports that he does not have a PCP at this time but that he has I HP. Patient advised to call [facility] to find out who is his assigned primary care physician so that he may follow up and have a referral placed for Podiatry. On re-evaluation patient has symptomatic improvement. Patient is stable for discharge at this time. All test results and diagnostic imaging have been interpreted. All diagnostic findings, discharge care, and education instruction provided to the patient. Follow-up with PCP in 2-3 days Patient verbalized understanding, discharge instructions and agrees to treatment plan Vital signs are stable Patient is ambulatory Patient advised of which symptoms necessitate a return visit to the emergency room. Patient to return emergency room for any new worsening symptoms. Patient is aware that the purpose of this visit is for an acute medical emergency requiring emergent stabilization. Chronic conditions, including malignancies have not been ruled out. Patient is instructed to follow up with PCP as directed for continued care and workup. If unable to arrange follow up, patient is to return to the emergency room for reassessment. Patient was given verbal and written discharge instructions and acknowledges understanding Time of 1ST Reevaluation: 12:42 Reevaluation 1ST: Unchanged Patient Education/Counseling: Diagnosis, Treatment, Prognosis, Need For Follow Up Family Education/Counseling: No Family Present Departure 1 Departure Time of Disposition: 12:42 Impression: Primary Impression: Heel callus Additional Impression: Foot pain, bilateral Disposition: 01 HOME / SELF CARE / HOMELESS Condition: Stable e-Prescriptions No Active Prescriptions or Reported Meds Critical Care Note Critical Care Time?: No Stability Stability form required: No Heart Score Heart Score: Heart Score Response (Comments) Value History N/A 0 EKG N/A 0 Age N/A 0 Risk Factors N/A 0 Troponin N/A 0 Total 0 [facility] Mar 15, 2024 12:43
[2024-03-15 13:50] VITALS: BP 123/70; PULSE 100; TEMP 98.1
[2024-03-15 13:51] VITALS: RESP 17; O2SAT 97
[2024-03-16] MEDS ORDERED: ACET500T58 PO (04:31)
== END 2024-03-15 12:44 | disposition home or self-care (01) ==
LOC: ER 10:07
DX: L84 Corns and callosities (principal); M79.671 Pain in right foot; M79.672 Pain in left foot

== ENCOUNTER 2024-03-16 03:32 | Emergency (ER) | payer MEDICAID ==
[~2024-03-16] VITALS: Ht 162.6 cm; Wt 68.3 kg
[2024-03-16 04:09] VITALS: BP 145/95; PULSE 86; RESP 16; TEMP 97.9; O2SAT 98
[2024-03-16] MEDS ORDERED: ACET500T58 PO (04:31)
--- NOTE | 2024-03-16 04:31 | ED.PDOC ---
Musculoskeletal HPI Comments 53-YEAR-OLD MALE PRESENTS TO ER WITH COMPLAINTS OF BILATERAL FOOT PAIN X2 WEEKS. PATIENT REPORTS HE HAS BEEN EXPERIENCING BILATERAL FOOT PAIN X2 WEEKS, DENYING ANY TRAUMA/INJURY. STATES HE IS CURRENTLY HOMELESS AND DOES SPENT SEVERAL HOURS A DAY ON HIS FEET. HE RATES HIS CURRENT PAIN A 7/10 TO BILATERAL FEET WITHOUT R ADIATION. DENIES USE OF MEDICATIONS FOR CURRENT SYMPTOMS. PATIENT WAS SEEN AND EVALUATED IN ER HERE FOR SIMILAR SYMPTOMS YESTERDAY AND STATES HE IS STILL EXPERIENCING BILATERAL FOOT PAIN PROMPTING HIM TO COME BACK TO ER. DENIES FEVER, BODY ACHES, CHILLS, OPEN WOUNDS/SKIN DRAINAGE, NUMBNESS/TINGLING OR ANY FURTHER SYMPTOMS/COMPLAINTS Chief Complaint: Lower Extremity Time Seen by MD: 03:39 Primary Care Provider: UNKNOWN Reviewed Notes: Nurses Notes, Medications, Allergies Allergies: Coded Allergies: NO KNOWN ALLERGIES (Unverified , 03/12/24) Home Meds Active Scripts Acetaminophen (Acetaminophen) 500 Mg Tab, 500 MG PO Q4HPRN, #30 TAB 0 Refills Prov:KARIS REYNA 03/16/24 Information Source: Patient Mode of Arrival: Ambulatory Past Medical History PAST MEDICAL HISTORY: Denies Surgical History: Denies all surgeries Family History Family History: Unknown Social History Smoker: Cigarettes, Less Than 1 Pack/Day Alcohol: Occasionally Drugs: Methamphetamine Lives In: Homeless Constitutional: denies: chills, diaphoresis, fatigue, fever, malaise, sweats, weakness, others EENTM: denies: blurred vision, double vision, ear bleeding, ear discharge, ear drainage, ear pain, ear ringing, eye pain, eye redness, hearing loss, mouth pain, mouth swelling, nasal discharge, nose bleeding, nose congestion, nose pain, photophobia, tearing, throat pain, throat swelling, voice changes, others Respiratory: denies: cough, hemoptysis, orthopnea, SOB at rest, shortness of breath, SOB with excertion, stridor, wheezing, others Cardiovascular: denies: chest pain, dizzy spells, diaphoresis, Dyspnea on exertion, edema, irregular heart beat, left arm pain, lightheadedness, palpitations, PND, syncope, others Gastrointestinal: denies: abdomen distended, abdominal pain, blood streaked bowels, constipated, diarrhea, dysphagia, difficulty swallowing, hematemesis, melena, nausea, poor appetite, poor fluid intake, rectal bleeding, rectal pain, vomiting, others Genitourinary: denies: burning, dysuria, flank pain, frequency, hematuria, incontinence, penile discharge, penile sore, pain, testicle pain, testicle swelling, urgency, others Neurological: denies: dizziness, fainting, headache, left sided numbness, left sided weakness, numbness, paresthesia, pre-existing deficit, right sided nu mbness, right sided weakness, seizure, speech problems, tingling, tremors, weakness, others Musculoskeletal: reports: others (As stated in HPI) Integumetry: denies: bruises, change in color, change in hair/nails, dryness, laceration, lesions, lumps, rash, wounds, others Allergic/Immunocompromised: denies: Difficulty Healing, Frequent Infections, Hives, Itching, others Hematologic/Lymphatic: denies: anemia, blood clots, easy bleeding, easy bruising, swollen glands, others Endocrine: denies: excessive hunger, excessive sweating, excessive thirst, excessive urination, flushing, intolerance to cold, intolerance to heat, unexplained weight gain, unexplained weight loss, others Psychiatric: denies: anxiety, bipolar disorder, depression, hopeless, panic disorder, schizophrenia, sleepless, suicidal, others Physical Exam General Appearance: No Apparent Distress HEENT: PERRL/EOMI Neck: Full Range of Motion, Non-Tender, Normal, Normal Inspection Respiratory: Chest Non-Tender, Lungs Clear, No Accessory Muscle Use, No Respir atory Distress, Normal Breath Sounds Cardiovascular: No Murmur, No Gallop, Regular Rate/Rhythm Breast Exam: Deferred Gastrointestinal: NOT DONE Genitalia: Deferred Pelvic: Deferred Rectal: Deferred Extremities: Normal capillary refill, Normal range of motion Neurologic: Alert, No Motor Deficits, Normal Affect, Normal Mood, No Sensory Deficits Cerebellar Function: Normal Reflexes: Normal Skin: Dry, Warm, Other (Xerosis noted to heels of bilateral feet. No deformities/open wounds or signs of infection noted. Pulses intact. Gait intact without abnormality ) Peripheral Pulses: 2+ dorsalis pedis (R), 2+ dorsalis pedis (L) Lymphatic: No Adenopathy Was a procedure done? Was a procedure done?: No Sedation Sedation?: No Differential Diagnosis EXT Differential Diagnosis: Cellulitis, Fracture, Neurovascular injury X-Ray, Labs, Meds, VS Vital Signs Date Time Temp Pulse Resp B/P (MAP) Pulse Ox O2 Delivery O2 Flow Rate FiO2 03/16/24 04:09 86 16 98 Room Air 03/16/24 04:09 97.9 86 16 145/95 (112) 98 97.9 03/16/24 03:57 97.9 86 16 145/95 (112) 98 Tylenol 650 mg p.o. ordered Patient neurovascularly intact Previous chart visit was reviewed Methamphetamine/smoking cessation discussed and advised Topical emollients and elevation discussed and advised Advised to follow up with PCP in 1-2 days Patient verbalized understanding and agreeable with current plan of care Advised to return to ER immediately if symptoms worsen Time of 1ST Reevaluation: 04:14 Reevaluation 1ST: N/A Patient Education/Counseling: Diagnosis, Treatment, Prognosis, Need For Follow Up Family Education/Counseling: No Family Present Departure 1 Departure Time of Disposition: 04:30 Impression: Primary Impression: Foot pain, bilateral Disposition: 01 HOME / SELF CARE / HOMELESS Condition: Stable e-Prescriptions Acetaminophen (Acetaminophen) 500 Mg Tab 500 MG PO Q4HPRN, #30 TAB 0 Refills Prov: KARIS REYNA 03/16/24 Discharged With: Self Critical Care Note Critical Care Time?: No Stability Stability form required: No Heart Score Heart Score: Heart Score Response (Comments) Value History N/A 0 EKG N/A 0 Age N/A 0 Risk Factors N/A 0 Troponin N/A 0 Total 0 KARIS REYNA Mar 16, 2024 04:31
[2024-03-16] MEDS: ACETAMINOPHEN 325 MG TAB PO ONE (04:57)
== END 2024-03-16 05:08 | disposition home or self-care (01) ==
LOC: ER 03:32
DX: M79.671 Pain in right foot (principal); M79.672 Pain in left foot; F15.10 Other stimulant abuse, uncomplicated; F17.210 Nicotine dependence, cigarettes, uncomplicated; Z59.00 Homelessness unspecified

== ENCOUNTER 2024-03-18 00:46 | Emergency (ER) | payer MEDICAID ==
[~2024-03-18] VITALS: Ht 162.6 cm; Wt 65.9 kg
[~2024-03-18 00:46] MED LIST: ACET500T58 PO
[2024-03-18] MEDS ORDERED: FAMO20TA10 PO (01:04)
--- NOTE | 2024-03-18 01:07 | ED.PDOC ---
GI ASSESSMENT HPI Comments 53-year-old male who came to ER due to abdominal pain. Patient is homeless, denies any medical problems, denies any history of abdominal surgeries. States for the past few hours he has been having left upper quadrant pain, 4/10 intensity. Denies any nausea or vomiting. Patient was seen and admitted here 5 days ago for the same thing, showing unremarkable results that time. Patient admits to have been drinking alcohol earlier Chief Complaint: Abdominal pain Time Seen by MD: 01:06 Primary Care Provider: UNKNOWN Reviewed Notes: Nurses Notes Allergies: Coded Allergies: NO KNOWN ALLERGIES (Unverified , 03/12/24) Home Meds Active Scripts Famotidine (PEPCID TABLET) 20 Mg Tb, 1 TAB PO BID PRN for 30 Days, #60 TAB 5 Refills Prov:LINUS WILLIAM MD 03/18/24 Acetaminophen (Acetaminophen) 500 Mg Tab, 500 MG PO Q4HPRN, #30 TAB 0 Refills Prov:KARIS REYNA 03/16/24 Information Source: Patient Mode of Arrival: Ambulatory Timing: Hours Duration: Since onset Prehospital treatment: None Quality: Aching Vomitus: None Stool: Normal Severity: Moderate Recent: None Recent Hx of: None Pain Location: LUQ Modifying Factors: Nothing Associated sign and symptoms: Abdominal Pain Past Medical History PAST MEDICAL HISTORY: Denies Surgical History: Denies all surgeries Family History Family History: Unknown Social History Smoker: Cigarettes, Less Than 1 Pack/Day Alcohol: Occasionally Drugs: Denies Drug Use Lives In: Homeless Constitutional: denies: chills, diaphoresis, fatigue, fever, malaise, sweats, weakness, others EENTM: denies: blurred vision, double vision, ear bleeding, ear discharge, ear drainage, ear pain, ear ringing, eye pain, eye redness, hearing loss, mouth pain, mouth swelling, nasal discharge, nose bleeding, nose congestion, nose pain, photophobia, tearing, throat pain, throat swelling, voice changes, others Respiratory: denies: cough, hemoptysis, orthopnea, SOB at rest, shortness of breath, SOB with excertion, stridor, wheezing, others Cardiovascular: denies: chest pain, dizzy spells, diaphoresis, Dyspnea on exertion, edema, irregular heart beat, left arm pain, lightheadedness, palpitations, PND, syncope, others Gastrointestinal: reports: abdominal pain (Left upper quadrant); denies: abdomen distended, blood streaked bowels, constipated, diarrhea, dysphagia, difficulty swallowing, hematemesis, melena, nausea, poor appetite, poor fluid intake, rectal bleeding, rectal pain, vomiting, others Genitourinary: denies: burning, dysuria, flank pain, frequency, hematuria, incontinence, penile discharge, penile sore, pain, testicle pain, testicle swelling, urgency, others Neurological: denies: dizziness, fainting, headache, left sided numbness, left sided weakness, numbness, paresthesia, pre-existing deficit, right sided numbness, right sided weakness, seizure, speech problems, tingling, tremors, we akness, others Musculoskeletal: denies: back pain, gout, joint pain, joint swelling, muscle pain, muscle stiffness, neck pain, others Integumetry: denies: bruises, change in color, change in hair/nails, dryness, laceration, lesions, lumps, rash, wounds, others Allergic/Immunocompromised: denies: Difficulty Healing, Frequent Infections, Hives, Itching, others Hematologic/Lymphatic: denies: anemia, blood clots, easy bleeding, easy bruising, swollen glands, others Endocrine: denies: excessive hunger, excessive sweating, excessive thirst, excessive urination, flushing, intolerance to cold, intolerance to heat, unexplained weight gain, unexplained weight loss, others Psychiatric: denies: anxiety, bipolar disorder, depression, hopeless, panic disorder, schizophrenia, sleepless, suicidal, others Physical Exam General Appearance: No Apparent Distress, Normal HEENT: Normal ENT Inspection, Pharynx Normal, TMs Normal Neck: Full Range of Motion, Non-Tender, Normal, Normal Inspection Respiratory: Chest Non-Tender, Lungs Clear, No Accessory Muscle Use, No Respiratory Distress, Normal Breath Sounds Cardiovascular: No Edema, No JVD, No Murmur, No Gallop, Normal Peripheral Pulses, Regular Rate/Rhythm Breast Exam: Deferred Gastrointestinal: No Organomegaly, Non Tender, No Pulsatile Mass, Normal Bowel Sounds, Soft Genitalia: Deferred Pelvic: Deferred Rectal: Deferred Extremities: No calf tenderness, Normal capillary refill, Normal inspection, Normal range of motion, Non-tender, No pedal edema Musculoskeletal : Apperance: Normal Neurologic: Alert, psychiatric lpn II-XII nml as Tested, No Motor Deficits, Normal Affect, Normal Mood, No Sensory Deficits Cerebellar Function: Normal Reflexes: Normal Skin: Dry, Normal Color, Warm Lymphatic: No Adenopathy Was a procedure done? Was a procedure done?: No GI differential Dx Differential Diagnosis: Constipation, Diverticular disease, Gastritis/PUD, Gastroenteritis, Pancreatitis, UTI X-Ray, Labs, Meds, VS Vital Signs Date Time Temp Pulse Resp B/P (MAP) Pulse Ox O2 Delivery O2 Flow Rate FiO2 03/18/24 01:45 87 16 117/82 (94) 98 03/18/24 01:45 87 16 98 Room Air* 0 21 03/18/24 00:55 99.1 87 16 117/82 (94) 98 Current Medications Medications (Trade) Dose Ordered Sig/Bhaskar Route Start Time Stop Time Status Last Admin Famotidine (Pepcid Tablet) 40 mg ONCE ONCE PO 03/18/24 01:15 03/18/24 01:16 DC 03/18/24 01:51 Al Hydrox/Mg Hydrox/Simethicone (Maalox Plus) 30 ml ONCE ONCE PO 03/18/24 01:15 03/18/24 01:16 DC 03/18/24 01:51 Acetaminophen/ Hydrocodone Bitart ([place] 10/325MG Tab) 1 tab ONCE ONCE PO 03/18/24 01:15 03/18/24 01:16 DC 03/18/24 01:51 Time of 1ST Reevaluation: 01:03 Reevaluation 1ST: Unchanged Time of 2ND Reevaluation: 01:30 Reevaluation 2ND: Resolved Patient Education/Counseling: Diagnosis, Treatment Family Education/Counseling: No Family Present Departure 1 Departure Time of Disposition: 01:30 Impression: Primary Impression: LUQ abdominal pain Additional Impression: Alcohol abuse Disposition: 01 HOME / SELF CARE / HOMELESS Condition: Stable e-Prescriptions Famotidine (PEPCID TABLET) 20 Mg Tb 1 TAB PO BID PRN for 30 Days, #60 TAB 5 Refills Prov: LINUS WILLIAM MD 03/18/24 Discharged With: Self (symptoms resolved with pepcid and GI cocktail) Critical Care Note Critical Care Time?: No Stability Stability form required: No Heart Score Heart Score: Heart Score Response (Comments) Value History N/A 0 EKG N/A 0 Age N/A 0 Risk Factors N/A 0 Troponin N/A 0 Total 0 I personally scribed for LINUS WILLIAM MD ([email or web address]) on 03/18/24 at 01:07. Electronically submitted by Alistair Sánchez ([facility]). LINUS WILLIAM MD Mar 18, 2024 01:07
[2024-03-18 01:45] VITALS: BP 117/82; PULSE 87; RESP 16; O2SAT 98
[2024-03-18] MEDS: MAALOX PLUS or MAALOX 30 ML PO ONE (01:51)
[2024-03-18] MEDS: HYDROcodone-ACET 10/325MG TAB PO ONE (01:51)
[2024-03-18] MEDS: FAMOTIDINE 20 MG TAB PO ONE (01:51)
== END 2024-03-18 01:51 | disposition home or self-care (01) ==
LOC: ER 00:46
DX: R10.12 Left upper quadrant pain (principal); F10.10 Alcohol abuse, uncomplicated; F17.210 Nicotine dependence, cigarettes, uncomplicated; Z59.00 Homelessness unspecified

== ENCOUNTER 2024-04-04 15:24 | Emergency (ER) | payer MEDICAID ==
[~2024-04-04 15:24] MED LIST changes: +FAMO20TA10 PO
== END 2024-04-04 16:48 | disposition left against medical advice (07) ==
LOC: ER 15:24
DX: R07.0 Pain in throat (principal); Z53.21 Procedure and treatment not carried out due to patient leaving prior to being seen by health care provider

== ENCOUNTER 2024-04-21 08:34 | Inpatient (IN) | payer MEDICAID ==
[~2024-04-21] VITALS: Ht 162.6 cm; Wt 65.2 kg
[~2024-04-21 08:34] MED LIST changes: +AZITTAB2 PO
[2024-04-21] MEDS: HYDROcodone-ACET 10/325MG TAB PO ONE (08:45)
--- NOTE | 2024-04-21 08:54 | ED.PDOC ---
GI ASSESSMENT HPI Comments 53 year old male presents to the ED with chief complaint of abdominal pain. Patient reports that he has been experiencing epigastric abdominal pain for the past 2 days. Patient denies any N/V/D, dizziness, fever, chills, dysuria, or chest pain. Time Seen by MD: 08:52 Primary Care Provider: UNKNOWN Reviewed Notes: Nurses Notes, Medications, Allergies Allergies: Coded Allergies: NO KNOWN ALLERGIES (Unverified , 03/12/24) Home Meds Active Scripts Azithromycin (Zithromax Tri-Shad) 500 Mg Tab, 500 MG PO DAILY for 3 Days, #3 TAB Prov:PEGGY JOE MD 03/25/24 Famotidine (PEPCID TABLET) 20 Mg Tb, 1 TAB PO BID PRN for 30 Days, #60 TAB 5 Refills Prov:LINUS WILLIAM MD 03/18/24 Acetaminophen (Acetaminophen) 500 Mg Tab, 500 MG PO Q4HPRN, #30 TAB 0 Refills Prov:KARIS REYNA 03/16/24 Information Source: Patient Mode of Arrival: Ambulatory Timing: Days Duration: Since onset Prehospital treatment: None Quality: Aching Vomitus: None Stool: Normal Severity: Moderate Recent: None Recent Hx of: None Pain Location: Epigastric Modifying Factors: Nothing Associated sign and symptoms: Abdominal Pain Past Medical History PAST MEDICAL HISTORY: Denies Surgical History: Denies all surgeries Family History Family History: Unknown Social History Smoker: Cigarettes, Less Than 1 Pack/Day Alcohol: Occasionally Drugs: Denies Drug Use Lives In: Homeless Constitutional: denies: chills, diaphoresis, fatigue, fever, malaise, sweats, weakness, others EENTM: denies: blurred vision, double vision, ear bleeding, ear discharge, ear drainage, ear pain, ear ringing, eye pain, eye redness, hearing loss, mouth pain, mouth swelling, nasal discharge, nose bleeding, nose congestion, nose p ain, photophobia, tearing, throat pain, throat swelling, voice changes, others Respiratory: denies: cough, hemoptysis, orthopnea, SOB at rest, shortness of breath, SOB with excertion, stridor, wheezing, others Cardiovascular: denies: chest pain, dizzy spells, diaphoresis, Dyspnea on exertion, edema, irregular heart beat, left arm pain, lightheadedness, palpitations, PND, syncope, others Gastrointestinal: reports: abdominal pain; denies: abdomen distended, blood streaked bowels, constipated, diarrhea, dysphagia, difficulty swallowing, hematemesis, melena, nausea, poor appetite, poor fluid intake, rectal bleeding, rectal pain, vomiting, others Genitourinary: denies: burning, dysuria, flank pain, frequency, hematuria, incontinence, penile discharge, penile sore, pain, testicle pain, testicle swelling, urgency, others Neurological: denies: dizziness, fainting, headache, left sided numbness, left sided weakness, numbness, paresthesia, pre-existing deficit, right sided numbness, right sided weakness, seizure, speech problems, tingling, tremors, weakness, others Musculoskeletal: denies: back pain, gout, joint pain, joint swelling, muscle pain, muscle stiffness, neck pain, others Integumetry: denies: bruises, change in color, change in hair/nails, dryness, laceration, lesions, lumps, rash, wounds, others Allergic/Immunocompromised: denies: Difficulty Healing, Frequent Infections, Hives, Itching, others Hematologic/Lymphatic: denies: anemia, blood clots, easy bleeding, easy bruising, swollen glands, others Endocrine: denies: excessive hunger, excessive sweating, excessive thirst, excessive urination, flushing, intolerance to cold, intolerance to heat, unexplained weight gain, unexplained weight loss, others Psychiatric: denies: anxiety, bipolar disorder, depression, hopeless, panic disorder, schizophrenia, sleepless, suicidal, others All Other Systems: Reviewed and Negative Physical Exam General Appearance: Moderate Distress, Normal HEENT: Normal ENT Inspection, Pharynx Normal, TMs Normal Neck: Full Range of Motion, Non-Tender, Normal, Normal Inspection Respiratory: Chest Non-Tender, Lungs Clear, No Accessory Muscle Use, No Respiratory Distress, Normal Breath Sounds Cardiovascular: No Edema, No JVD, No Murmur, No Gallop, Normal Peripheral Pulses, Regular Rate/Rhythm Breast Exam: Deferred Gastrointestinal: No Organomegaly, Non Tender, No Pulsatile Mass, Normal Bowel Sounds, Soft Genitalia: Deferred Pelvic: Deferred Rectal: Deferred Extremities: No calf tenderness, Normal capillary refill, Normal inspection, Normal range of motion, Non-tender, No pedal edema Musculoskeletal : Apperance: Normal Neurologic: Alert, signs and displays sales representative II-XII nml as Tested, No Motor Deficits, Normal Affect, Normal Mood, No Sensory Deficits Cerebellar Function: Normal Reflexes: Normal Skin: Dry, Normal Color, Warm Peripheral Pulses: 3+ Radial (R), 3+ Radial (L) Lymphatic: No Adenopathy Was a procedure done? Was a procedure done?: No GI differential Dx Differential Diagnosis: Constipation, Diverticular disease, Esophagitis, Gastritis/PUD, Gastroenteritis X-Ray, Labs, Meds, VS Vital Signs Date Time Temp Pulse Resp B/P (MAP) Pulse Ox O2 Delivery O2 Flow Rate FiO2 04/21/24 08:53 97.6 110 18 143/90 (107) 97 Lab Test 04/21/24 09:05 Range/Units White Blood Count 15.9 H 4.4-10.8 10^3/uL Red Blood Count 5.35 4.5-5.90 10^6/uL Hemoglobin 14.7 13.5-17.5 g/dL Hematocrit 43.9 41.0-53.0 % Mean Corpuscular Volume 82.1 80.0-100.0 fL Mean Corpuscular Hemoglobin 27.5 L 28.0-32.0 pg Mean Corpuscular Hemoglobin Concent 33.5 32.0-36.0 g/dL Red Cell Distribution Width 13.7 11.8-14.3 % Platelet Count 507 H 140-450 10^3/uL Mean Platelet Volume 6.8 L 6.9-10.8 fL Neutrophils (%) (Auto) 82.2 H 37.0-80.0 % Lymphocytes (%) (Auto) 8.2 L 10.0-50.0 % Monocytes (%) (Auto) 8.9 0.0-12.0 % Eosinophils (%) (Auto) 0.4 0.0-7.0 % Basophils (%) (Auto) 0.3 0.0-2.0 % Neutrophils # (Auto) 13.1 H 1.6-8.6 10 ^3/uL Lymphocytes # (Auto) 1.3 0.4-5.4 10 ^3/uL Monocytes # (Auto) 1.4 H 0-1.3 10 ^3/uL Eosinophils # (Auto) 0.1 0-0.8 10 ^3/uL Basophils # (Auto) 0 0-0.2 10 ^3/uL Nucleated Red Blood Cells 0.0 % Sodium Level 128 L 136-145 mmol/L Potassium Level 3.5 3.5-5.1 mmol/L Chloride Level 94 L 98-107 mmol/L Carbon Dioxide Level 27 20-31 mmol/L Anion Gap 7 5-15 Blood Urea Nitrogen 15 9-23 mg/dL Creatinine 0.75 0.700-1.30 mg/dL Glomerular Filtration Rate Calc 109 >90 mL/min BUN/Creatinine Ratio 20.0 10.0-20.0 Serum Glucose 155 H 74-106 mg/dL Calcium Level 9.6 8.7-10.4 mg/dL Current Medications Medications (Trade) Dose Ordered Sig/Bhaskar Route Start Time Stop Time Status Last Admin Acetaminophen/ Hydrocodone Bitart ([place] 10/325MG Tab) 1 tab ONCE ONCE PO 04/21/24 08:45 04/21/24 08:46 DC 04/21/24 08:45 Patient alert. Complaining of abdominal pain. Vitals stable. Answering questions. WBC elevated. Possible colitis. Blood sugar elevated. Was given pain medication. Sodium level is low. Establish intravenous access. Was given fluids. Explained to the patient. Continue cardiac monitoring. Time of 1ST Reevaluation: 09:52 Reevaluation 1ST: Unchanged Patient Education/Counseling: Diagnosis, Treatment Family Education/Counseling: No Family Present Departure 1 Departure Time of Disposition: 11:24 Impression: Primary Impression: Acute abdominal pain Additional Impressions: Non-specific colitis Hyponatremia Disposition: ADMITTED INPATIENT Admit to: Med Surg Condition: Guarded Critical Care Note Critical Care Time?: No Stability Stability form required: No Heart Score Heart Score: Heart Score Response (Comments) Value History N/A 0 EKG N/A 0 Age N/A 0 Risk Factors N/A 0 Troponin N/A 0 Total 0 I personally scribed for ROLAND REINA MD ([email or web address]) on 04/21/24 at 08:53. Electronically submitted by Parmjit Schneider ([email or web address]). ROLAND REINA MD Apr 21, 2024 08:53
[2024-04-21 09:16] LABS: Basophils # (auto) 0 10 ^3/uL (0-0.2); Basophils % (auto) 0.3 % (0.0-2.0); Eosinophils # (auto) 0.1 10 ^3/uL (0-0.8); Eosinophils % (auto) 0.4 % (0.0-7.0); Hemoglobin 14.7 g/dL (13.5-17.5); Monocytes # (auto) 1.4 10 ^3/uL (0-1.3); Monocytes % (auto) 8.9 % (0.0-12.0)
[2024-04-21 09:17] LABS: Hematocrit 43.9 % (41.0-53.0); Lymphocytes # (auto) 1.3 10 ^3/uL (0.4-5.4); Lymphocytes % (auto) 8.2 % (10.0-50.0); Mean Corpuscular Hemoglobin 27.5 pg (28.0-32.0); Mean Corpuscular Hgb Conc. 33.5 g/dL (32.0-36.0); Mean Corpuscular Volume 82.1 fL (80.0-100.0); Neutrophils # (auto) 13.1 10 ^3/uL (1.6-8.6); Neutrophils % (auto) 82.2 % (37.0-80.0); Platelet Count (auto) 507 10^3/uL (140-450); Red Blood Cells 5.35 10^6/uL (4.5-5.90); Red Cell Distribution Width 13.7 % (11.8-14.3); White Blood Cell 15.9 10^3/uL (4.4-10.8)
[2024-04-21 09:23] LABS: Potassium 3.5 mmol/L (3.5-5.1)
[2024-04-21 09:24] LABS: Anion Gap 7 (5-15); Calcium 9.6 mg/dL (8.7-10.4); Carbon Dioxide 27 mmol/L (20-31); Chloride 94 mmol/L (98-107); Sodium 128 mmol/L (136-145)
[2024-04-21 09:29] LABS: Blood Urea Nitrogen 15 mg/dL (9-23)
[2024-04-21 09:33] LABS: Glucose 155 mg/dL (74-106)
--- NOTE | 2024-04-21 12:00 | DVH ---
CT CT AB PEL WO CON-NO ORAL OR IV INDICATION: colitis EXAM DATE: 04/21/2024 11:38 AM COMPARISON: CT CT AB PEL WO CON-NO ORAL OR IV on DOS: 03/12/24 RADIATION DOSE: CTDIvol: 6 mGy, DLP: 327 mGy*cm PROCEDURE: Helical CT images were obtained of the abdomen and pelvis without IV contrast Sagittal an d coronal reconstructions are provided. ORAL CONTRAST: None. ADDITIONAL IMAGES / REFORMATS: None All CT scans at this medical facility are performed using dose modulation techniques as appropriate t o a performed exam including the following: Automated exposure control was utilized; adjustment of th e MA and/or KV according to patient size; and use of iterative reconstruction technique. FINDINGS: LUNG BASE: Normal. LIVER: Normal. GALLBLADDER AND BILIARY TREE: No calcified gallstones. Normal caliber wall. No intra- or extrahepatic biliary ductal dilation. PANCREAS: Moderate peripancreatic fat stranding can be seen with acute pancreatitis. SPLEEN: Normal. BOWEL: Focal dilation loop of small bowel could be seen with focal ileus. Normal appendix. ADRENALS: Normal. KIDNEYS AND URETER: Bilateral punctate nonobstructive kidney stones. BLADDER: Normal. REPRODUCTIVE ORGANS: Normal. LYMPH NODES:No lymphadenopathy. PERITONEUM: No ascites or free air. No other fluid collection. VESSELS: Scattered atherosclerotic calcifications are noted. RETROPERITONEUM: Normal. ABDOMINAL WALL: Normal. BONES: Scattered osseous degenerative changes are noted. IMPRESSION: Moderate peripancreatic fat stranding can be seen with acute pancreatitis. Focal dilation loop of small bowel could be seen with focal ileus. Bilateral punctate nonobstructive kidney stones.
[2024-04-21] MEDS ORDERED: NITROGLYCERIN 0.4 MG SL TAB SL PRN (12:45)
[2024-04-21] MEDS ORDERED: MORPHINE SULFATE INJ 2 MG/ml SYRG IV PRN (12:45)
[2024-04-21] MEDS: SODIUM CHLORIDE 0.9% 1,000 ML IV SCH (12:45)
[2024-04-21] MEDS ORDERED: DOCUSATE SOD 100 MG CAP PO PRN (12:45)
[2024-04-21] MEDS ORDERED: ONDANSETRON HCL 4 MG/2 ML VIAL IV PRN (12:45)
[2024-04-21 13:21] LABS: Amphetamine Screen, Urine Pos (NEGATIVE); Barbiturate Scree,Urine Neg (NEGATIVE); Benzodiazephine Screen, Urine Neg (NEGATIVE); Cannabinoid Screen, Urine Neg (NEGATIVE); Cocaine Screen, Urine Neg (NEGATIVE); Opiate Scree,Urine Neg (NEGATIVE); Phencyclidine Screen, Urine Neg (NEGATIVE)
[2024-04-21] MEDS: PIPERACILLIN-TAZOB 3.375GM 100 ML IV SCH (14:00)
[2024-04-21] MEDS: SODIUM CHLORIDE 0.9% 1,000 ML IVB ONE (14:30)
[2024-04-21] MEDS: cefTRIAXone 1GM/50ML D5W 50 ML IV ONE (14:30)
[2024-04-21] MEDS: ONDANSETRON HCL 4 MG/2 ML VIAL IV ONE (14:30)
[2024-04-21] MEDS: ENOXAPARIN SOD 40 MG/0.4 ML SYRINGE SC SCH (14:31)
[2024-04-21] MEDS: MORPHINE SULFATE 4 MG/ML SYR/VIAL IV ONE (14:37)
[2024-04-21 14:40] VITALS: PULSE 85; RESP 16; O2SAT 96
[2024-04-21] MEDS: PIPERACILLIN-TAZOB 3.375GM 100 ML IV ONE (15:13)
[2024-04-21] MEDS: metroNIDAZOLE 500MG/100ML 100 ML IV ONE (15:13)
[2024-04-21 16:49] VITALS: BP 105/73; PULSE 76; RESP 18; TEMP 97.6; O2SAT 99
--- NOTE | 2024-04-21 17:51 | DVHHP2 ---
History of Present Illness Reason for Visit: Abdominal pain History of Present Illness 53-year-old male no past medical history no surgical history chief complaint he states that he has been having epigastric pain when he has been going on for two days now. Patient states it is like a sharp pain but today the symptoms got worse. He states no vomiting with the he had diarrhea but there was no blood in his diarrhea. He denies any chest pain no shortness with the breath when evaluating patient's labs and imaging looks like Flagyl was provided ceftriaxone and morphine normal saline Zofran [place] white count was found to be 15.9 platelet was 507 sodium was 128 glucose was 155. Patient had CT scan abdomen pelvis completed shows acute pancreatitis and mild ileus. With these findings we will admit patient for IV hydration and pain management from. Past Medical History Denies any medical history Past Surgical History Denies surgical history Family History Reviewed, non-contributory to the management of this case. Past Social History Patient denies drinking smoking or drug use but he is currently homeless Review of Systems Constitutional: No: Fever, Chills, Sweats, Weakness, Malaise, Other Eyes: No: Pain, Vision change, Conjunctivae inflammation, Eyelid inflammation, Other, Redness ENT: No: Ear pain, Ear discharge, Nose pain, Nose discharge, Nose congestion, Mouth pain, Mouth swelling, Throat pain, Throat swelling, Other Respiratory: No: Cough, Dry, Shortness of breath, SOB with excertion, Wheezing, Hemoptysis, Pleuritic Pain, Sputum, Wheezing, Other Cardiovascular: No: Chest Pain, Palpitations, Orthopnea, Paroxysmal Noc. Dy spnea, Edema, Lt Headedness, Other Gastrointestinal: Abdominal Pain, Diarrhea; No: Nausea, Vomiting, Constipation, Melena, Hematochezia, Other Genitourinary: No Dysuria, No Frequency, No Incontinence, No Hematuria, No Retention, No Other Musculoskeletal: No: other, neck pain, shoulder pain, arm pain, back pain, hand pain, leg pain, foot pain Skin: No: Rash, Lesions, Jaundice, Bruising, Other Neurological: No: Weakness, Numbness, Incoordination, Change in speech, Confusion, Seizures, Other Allergies: Coded Allergies: NO KNOWN ALLERGIES (Unverified , 03/12/24) Medications Current Medications Medications Dose Ordered Sig/Bhaskar Route Start Time Stop Time Status Last Admin Dose Admin Sodium Chloride 1,000 ml @ 120 mls/hr Q8H20M IV 04/21/24 12:45 Ondansetron HCl 4 mg Q4HP PRN IV 04/21/24 12:45 Docusate Sodium 100 mg BIDPRN PRN PO 04/21/24 12:45 Morphine Sulfate 2 mg Q4HPRN PRN IV 04/21/24 12:45 Enoxaparin Sodium 40 mg DAILY SC 04/21/24 12:45 04/21/24 14:31 40 MG Nitroglycerin 0.4 mg Q5MINP PRN SL 04/21/24 12:45 Piperacillin Sod/ Tazobactam Sod 100 ml @ 25 mls/hr Q8HR IV 04/21/24 14:00 Exam Vital Signs Vital Signs Date Time Temp Pulse Resp B/P (MAP) Pulse Ox O2 Delivery O2 Flow Rate FiO2 04/21/24 16:49 97.6 76 18 105/73 (84) 99 97.6 04/21/24 14:40 Room Air* 0 21 General Appearance: Alert, Oriented X3, Cooperative, No acute distress HEENT: Atraumatic, PERRLA, EOMI, Mucous membr. moist/pink Respiratory: Clear to auscultation, Normal air movement Cardiovascular: Regular rate, Normal S1, Normal S2, No murmurs Abdominal: Normal bowel sounds, Soft, No tenderness, No hepatospenomegaly, No masses Extremities: No clubbing, No cyanosis, No edema, Normal pulses, No tenderness/swelling Skin: No rashes, No breakdown, No significant lesion Neuro: Normal gait, Normal speech, Strength at 5/5 X4 ext, Normal tone, Sensation intact, Cranial nerves 3-12 NL Psych/Mental Status: Mental status NL, Mood NL Labs/Xrays CT scan abdomen shows nonobstructing kidney stone that in the acute pancreatitis and developing ileus I reviewed labs, imaging CT scan abdomen pelvis, EKG and all diagnostic studies on this patient from ED records and the medical chart yes Labs Test 04/21/24 11:54 04/21/24 09:05 04/21/24 08:52 Range/Units Lactic Acid Level 1.4 0.4-2.0 mmol/L White Blood Count 15.9 H 4.4-10.8 10^3/uL Red Blood Count 5.35 4.5-5.90 10^6/uL Hemoglobin 14.7 13.5-17.5 g/dL Hematocrit 43.9 41.0-53.0 % Mean Corpuscular Volume 82.1 80.0-100.0 fL Mean Corpuscular Hemoglobin 27.5 L 28.0-32.0 pg Mean Corpuscular Hemoglobin Concent 33.5 32.0-36.0 g/dL Red Cell Distribution Width 13.7 11.8-14.3 % Platelet Count 507 H 140-450 10^3/uL Mean Platelet Volume 6.8 L 6.9-10.8 fL Neutrophils (%) (Auto) 82.2 H 37.0-80.0 % Lymphocytes (%) (Auto) 8.2 L 10.0-50.0 % Monocytes (%) (Auto) 8.9 0.0-12.0 % Eosinophils (%) (Auto) 0.4 0.0-7.0 % Basophils (%) (Auto) 0.3 0.0-2.0 % Neutrophils # (Auto) 13.1 H 1.6-8.6 10 ^3/uL Lymphocytes # (Auto) 1.3 0.4-5.4 10 ^3/uL Monocytes # (Auto) 1.4 H 0-1.3 10 ^3/uL Eosinophils # (Auto) 0.1 0-0.8 10 ^3/uL Basophils # (Auto) 0 0-0.2 10 ^3/uL Nucleated Red Blood Cells 0.0 % Sodium Level 128 L 136-145 mmol/L Potassium Level 3.5 3.5-5.1 mmol/L Chloride Level 94 L 98-107 mmol/L Carbon Dioxide Level 27 20-31 mmol/L Anion Gap 7 5-15 Blood Urea Nitrogen 15 9-23 mg/dL Creatinine 0.75 0.700-1.30 mg/dL Glomerular Filtration Rate Calc 109 >90 mL/min BUN/Creatinine Ratio 20.0 10.0-20.0 Serum Glucose 155 H 74-106 mg/dL Calcium Level 9.6 8.7-10.4 mg/dL Triglycerides Level 93 < 150 mg/dL Urine Opiates Screen Neg NEGATIVE Urine Fentanyl Screen Neg NEGATIVE Urine Barbiturates Screen Neg NEGATIVE Urine Phencyclidine Screen Neg NEGATIVE Urine Amphetamines Screen Pos NEGATIVE Urine Benzodiazepines Screen Neg NEGATIVE Urine Cocaine Screen Neg NEGATIVE Urine Cannabinoids Screen Neg NEGATIVE Assessment/Plan Assessment/Plan acute intractable abdominal pain likely from pancreatitis and illeus found on ct scan Ordered Zosyn IV fluids N.p.o. Ordered morphine as needed for pain GI consult follow-up recs ordered US of abdomen ordered triglycerides Replace electrolytes Acute ileus without obstruction and perforation found on ct scan ordered ivf for now consider ng tube if no improvement and vomiting consider general surgery consult if no improvement Acute pancreatitis found on ct scan ordered zosyn ordered npo ordered morphine prn pain ordered gi consult fu results acute hyponatremia likley related to dehydration ordered ivf for now Acute leukocytosis likely related to pancreatitis ordered zosyn for now fen/ppx npo ivf lovenox scd protonix plan admit to medicine for pain medication and care for pancreatitis Plan discussed with: Patient My Orders Orders - ANALIA JOHNSTON DNP Procedure Category Date Status Time Admit ADMIT 04/21/24 Transmitted 12:43 Allergies CONSTANTIN 04/21/24 In Process 12:43 Code Status CODE 04/21/24 Transmitted 12:43 Sodium Chloride 0.9% PHA 04/21/24 In Process 12:45 Ondansetron Hcl PHA 04/21/24 In Process (Zofran) 12:45 Docusate Sodium PHA 04/21/24 In Process Capsule (Colace 12:45 Complete Blood Count LAB 04/22/24 Verified 04:00 Comprehensive LAB 04/22/24 Verified Metabolic Panel 04:00 Npo (Nothing By DIET 04/21/24 Transmitted Mouth) Diet Lunch Condition: Stable CONSTANTIN 04/21/24 In Process 12:43 BRP CONSTANTIN 04/21/24 In Process 12:43 Morphine Sulfate PHA 04/21/24 In Process Injection 12:45 Sequential CONSTANTIN 04/21/24 In Process Compression Device Enoxaparin Sodium PHA 04/21/24 In Process (Lovenox) 12:45 Nitroglycerin PHA 04/21/24 In Process Sublingual (Ntrostat 12:45 Stat Ekg For Chest CONSTANTIN 04/21/24 In Process Pain 12:43 Notify Md Of Changes CONSTANTIN 04/21/24 In Process From Base 12:43 Surgical Brace Maker For CONSTANTIN 04/21/24 In Process 24 Hours 12:43 Emergency Dysrhythmia CONSTANTIN 04/21/24 In Process Protocol 12:43 Rhythm Strips Once CONSTANTIN 04/21/24 In Process Every Shift 12:43 Oxygen By Nasal RT 04/21/24 Transmitted Cannula 12:43 Piperacillin-Tazob PHA 04/21/24 In Process 3.375gm (Zosyn 3.375g 14:00 * [facility] [place] Nurse CONS 04/21/24 Transmitted 12:43 Date of Service: Apr 21, 2024 Billing Provider: ANALIA JOHNSTON DNP Common Visit Codes: [id number] INP/OBS CARE (HIGH) ANALIA JOHNSTON DNP Apr 21, 2024 17:51
[2024-04-21 20:00] VITALS: BP 100/67; PULSE 81; RESP 18; TEMP 98.3; O2SAT 97
[2024-04-21 22:02] VITALS: O2SAT 97
[2024-04-21 22:24] VITALS: BP 99/68; RESP 17; TEMP 97.9; O2SAT 97
[2024-04-22] VITALS (8 sets, daily range): BP systolic 105–122; BP diastolic 70–80; PULSE 63–90; RESP 16–20; TEMP 97.5–99; O2SAT 96–100
[2024-04-22 07:42] LABS: Basophils # (auto) 0 10 ^3/uL (0-0.2); Basophils % (auto) 0.6 % (0.0-2.0); Eosinophils # (auto) 0.4 10 ^3/uL (0-0.8); Eosinophils % (auto) 5.8 % (0.0-7.0); Hematocrit 33.7 % (41.0-53.0); Hemoglobin 11.2 g/dL (13.5-17.5); Lymphocytes # (auto) 1.8 10 ^3/uL (0.4-5.4); Lymphocytes % (auto) 23.8 % (10.0-50.0); Mean Corpuscular Hemoglobin 27.3 pg (28.0-32.0); Mean Corpuscular Hgb Conc. 33.4 g/dL (32.0-36.0); Mean Corpuscular Volume 81.7 fL (80.0-100.0); Monocytes # (auto) 0.8 10 ^3/uL (0-1.3); Monocytes % (auto) 10.5 % (0.0-12.0); Neutrophils # (auto) 4.5 10 ^3/uL (1.6-8.6); Neutrophils % (auto) 59.3 % (37.0-80.0); Nucleated Red Blood Cells % 0.2 %; Platelet Count (auto) 406 10^3/uL (140-450); Red Blood Cells 4.12 10^6/uL (4.5-5.90); Red Cell Distribution Width 13.3 % (11.8-14.3); White Blood Cell 7.6 10^3/uL (4.4-10.8)
[2024-04-22 07:51] LABS: Alanine Aminotransferase 17 U/L (7-40); Anion Gap 7 (5-15); Carbon Dioxide 24 mmol/L (20-31); Chloride 102 mmol/L (98-107); Glucose 85 mg/dL (74-106)
[2024-04-22 07:52] LABS: Alkaline Phosphatase 156 U/L (46-116); BUN/Creatinine Ratio 22.4 (10.0-20.0); Blood Urea Nitrogen 15 mg/dL (9-23); Calcium 8.6 mg/dL (8.7-10.4); Potassium 3.2 mmol/L (3.5-5.1); Sodium 133 mmol/L (136-145)
[2024-04-22 07:53] LABS: Albumin 3.7 g/dL (3.2-4.8); Aspartate Aminotransferase 12 U/L (13-40)
[2024-04-22 07:54] LABS: Bilirubin, Total 0.3 mg/dL (0.2-1.0)
[2024-04-22 08:02] LABS: Total Protein 5.7 g/dL (5.7-8.2)
[2024-04-22] MEDS: POTASSIUM CHLORIDE 40 MEQ, LIDOCAINE 1% (LOCAL ANESTH.) 4 ML in SODIUM CHL 0.9% 250 ML IV ONE (12:21)
--- NOTE | 2024-04-22 18:23 | DVHPNRES ---
Progress Note Date Seen: Apr 22, 2024 Resident Creating Document: RENATO ZUÑIGA RESIDENT Has the PT tested + for MRSA If YES, has PT been informed?: No Medical Necessity Reason Pt with a Central, PICC or Fol: No Medical Necessity Reason Generalized abdominal pain Subjective Review of Systems This is a 53-year-old male no past medical or surgical history presented to the ED with a chief complaint of abdominal pain for the past 2 days and still ongiong. Patient described the pain as been sharp pain and diffused thus prompting him to come to the ED. He denied vomitng, nausea, diarrhea, fever or chills. He denies any chest pain no shortness. His initial vitals were temperature 97.5 HR: 76 RR:18, BP:105/73 with SpO2 of 99%. Initial lab values included WBC 15.9, hemoglobin of 14.7 d-->11.2, platelet was 507 sodium was 128 and glucose was 155. Lipase: 49 CT scan abdomen pelvis completed showed acute pancreatitis and mild ileus. On my evaluation with the patient today, patient seems to be doing well. He has no abdominal pain, nausea, vomiting, headache no chest pain no palpitation. Patient said he is doing well he was given some antibiotics last night and he is doing better this morning with no abdominal pain and was asking for food. Patient is also homeless Constitutional: Denies fever no chills no feeling of malaise HEENT: Denies headache, ear pain, ear discharges, conjunctivitis, nasal discharge throat pain Cardiovascular: Denies chest pain, palpitation, orthopnea, PND, or pedal edema Respiratory: Denies shortness of breath, cough cough, sputum production, hemoptysis, GI: Denies abdominal pain, nausea, vomiting, diarrhea, hematemesis, hematochezia, : Denies frequency, urgency, hematuria, Endocrine: Denies unintentional weight gain or weight loss, feeling of hot flashes, Andrew: Denies easy bruising, bleeding disorders, epistaxis Musculoskeletal: Denies joint pains, muscle aches Psych: No evidence of depression, graham, suicidal ideation Objective vital signs Vital Sign Date Time Temp Pulse Resp B/P (MAP) Pulse Ox O2 Delivery O2 Flow Rate FiO2 04/22/24 16:40 97.6 87 17 111/71 (84) 97 97.6 04/22/24 08:00 Room Air* 0 21 Total Intake and Output 04/21/24 04/21/24 04/22/24 15:00 23:00 07:00 Intake Total 200 ml Balance 200 ml medications Current Medications Medications Dose Ordered Sig/Bhaskar Route Start Time Stop Time Status Last Admin Dose Admin Sodium Chloride 1,000 ml @ 120 mls/hr Q8H20M IV 04/21/24 12:45 04/22/24 14:35 120 MLS/HR Ondansetron HCl 4 mg Q4HP PRN IV 04/21/24 12:45 Docusate Sodium 100 mg BIDPRN PRN PO 04/21/24 12:45 Morphine Sulfate 2 mg Q4HPRN PRN IV 04/21/24 12:45 Enoxaparin Sodium 40 mg DAILY SC 04/21/24 12:45 04/22/24 12:20 40 MG Nitroglycerin 0.4 mg Q5MINP PRN SL 04/21/24 12:45 Piperacillin Sod/ Tazobactam Sod 100 ml @ 25 mls/hr Q8HR IV 04/21/24 14:00 04/22/24 14:34 25 MLS/HR Examination General Appearance: Alert, Oriented X3, Cooperative, No acute distress HEENT: Atraumatic, PERRLA, EOMI, Mucous membrane moist/pink Respiratory: Clear to auscultation, Normal air movement Cardiovascular: Regular rate, Normal S1, Normal S2, No murmurs, no chest wall tenderness Abdominal: NO distention, no tenderness, bowel sounds present, no scars noted Extremities: No clubbing, No cyanosis, No edema, Normal pulses, No tenderness/swelling Skin: No rashes, No breakdown, No significant lesion Neuro: Normal gait, Normal speech, Strength at 5/5 X4 ext, Normal tone, Sensation intact, Cranial nerves 3-12 NL, Reflexes 2+ Psych/Mental Status: Mental status NL, Mood NL laboratory and microbiology Laboratory Tests 04/22/24 06:38 Test 04/22/24 06:38 Range/Units Serum Glucose 85 74-106 mg/dL Microbiology Date/Time Source Procedure Growth Status 04/21/24 11:54 Blood Blood Culture - Preliminary NO GROWTH AFTER 24 HOURS OF INCUBATION. Resulted Problem List/Assessment/Plan Problem List/Assessment/Plan Assessment Abdominal pain: improved Acute intractable abdominal pain possible from pancreatitis and illeus Possible Acute ileus without obstruction and perforation Possible Acute pancreatitis on scan Acute leukocytosis--> Improved Hyponatremia Bilateral punctate nonobstructive kidney stones Amphetamine abuse Homeless Plan Lipase is normal CBC CMP Replace electrolytes Soft Mechanical diet Homeless Social service consult Status full: Code Goal of care discussed for more than 45 minutes Case and plan discussed and reviewed with Dr. Mcmahan Plan discussed with: Patient My Orders My Orders Orders - RENATO ZUÑIGA Procedure Category Date Status Time Mechanical Soft Diet DIET 04/22/24 Transmitted Lunch * [employer] CONS 04/22/24 Transmitted Consult Complete Blood Count LAB 04/23/24 Verified 04:00 Comprehensive LAB 04/23/24 Verified Metabolic Panel 04:00 RENATO ZUÑIGA RESIDENT Apr 22, 2024 18:23
--- NOTE | 2024-04-22 18:24 | DVHINCON2 ---
Date of service: Apr 22, 2024 Referring Physician Juancarlos Reason for Consultation Acute pancreatitis History of Present Illness The patient is a 53-year-old male with no past medical history was homeless, states that he has a prior history of pancreatitis admitted with acute pancreatitis of unknown etiology. Patient states that he is improving. He states that the pain has gone away. He denies any nausea or vomiting, fevers or chills, chest pain or shortness of breath. She denies any alcohol abuse history. He does smoke. Denies any recreational drug use history. Past Medical History Acute pancreatitis and passed Past Surgical History Denies Family History: Patient reports no known family medical history. Family History Denies any GI diseases or malignancy Social History Social alcohol, denies recreational drug use Does smoke daily Allergies: Coded Allergies: NO KNOWN ALLERGIES (Unverified , 03/12/24) Home Meds No Active Prescriptions or Reported Meds Current Medications No home medications Review of Systems 12 point review of systems negative other than HPI Vital Signs Vital Signs Date Time Temp Pulse Resp B/P (MAP) Pulse Ox O2 Delivery O2 Flow Rate FiO2 04/22/24 16:40 97.6 87 17 111/71 (84) 97 97.6 04/22/24 08:00 Room Air* 0 21 Physical Exam General: Alert and oriented, disheveled appearing HEENT: Normocephalic atraumatic extraocular movements intact Pupils equal round react light and accommodating Heart regular rate and rhythm Abdomen soft nontender nondistended No clubbing cyanosis or edema Labs/Diagnostic Data Labs Test 04/22/24 06:38 04/21/24 11:54 04/21/24 09:05 04/21/24 08:52 Range/Units White Blood Count 7.6 # 4.4-10.8 10^3/uL Red Blood Count 4.12 L 4.5-5.90 10^6/uL Hemoglobin 11.2 #L 13.5-17.5 g/dL Hematocrit 33.7 #L 41.0-53.0 % Mean Corpuscular Volume 81.7 80.0-100.0 fL Mean Corpuscular Hemoglobin 27.3 L 28.0-32.0 pg Mean Corpuscular Hemoglobin Concent 33.4 32.0-36.0 g/dL Red Cell Distribution Width 13.3 11.8-14.3 % Platelet Count 406 140-450 10^3/uL Mean Platelet Volume 6.8 L 6.9-10.8 fL Neutrophils (%) (Auto) 59.3 37.0-80.0 % Lymphocytes (%) (Auto) 23.8 10.0-50.0 % Monocytes (%) (Auto) 10.5 0.0-12.0 % Eosinophils (%) (Auto) 5.8 0.0-7.0 % Basophils (%) (Auto) 0.6 0.0-2.0 % Neutrophils # (Auto) 4.5 1.6-8.6 10 ^3/uL Lymphocytes # (Auto) 1.8 0.4-5.4 10 ^3/uL Monocytes # (Auto) 0.8 0-1.3 10 ^3/uL Eosinophils # (Auto) 0.4 0-0.8 10 ^3/uL Basophils # (Auto) 0 0-0.2 10 ^3/uL Nucleated Red Blood Cells 0.2 % Sodium Level 133 #L 136-145 mmol/L Potassium Level 3.2 L 3.5-5.1 mmol/L Chloride Level 102 98-107 mmol/L Carbon Dioxide Level 24 20-31 mmol/L Anion Gap 7 5-15 Blood Urea Nitrogen 15 9-23 mg/dL Creatinine 0.67 L 0.700-1.30 mg/dL Glomerular Filtration Rate Calc 113 >90 mL/min BUN/Creatinine Ratio 22.4 H 10.0-20.0 Serum Glucose 85 74-106 mg/dL Calcium Level 8.6 L 8.7-10.4 mg/dL Total Bilirubin 0.3 0.2-1.0 mg/dL Aspartate Amino Transferase (AST) 12 L 13-40 U/L Alanine Aminotransferase (ALT) 17 7-40 U/L Alkaline Phosphatase 156 H 46-116 U/L Total Protein 5.7 5.7-8.2 g/dL Albumin 3.7 3.2-4.8 g/dL Lipase 49 12-53 U/L Lactic Acid Level 1.4 0.4-2.0 mmol/L Triglycerides Level 93 < 150 mg/dL Urine Opiates Screen Neg NEGATIVE Urine Fentanyl Screen Neg NEGATIVE Urine Barbiturates Screen Neg NEGATIVE Urine Phencyclidine Screen Neg NEGATIVE Urine Amphetamines Screen Pos NEGATIVE Urine Benzodiazepines Screen Neg NEGATIVE Urine Cocaine Screen Neg NEGATIVE Urine Cannabinoids Screen Neg NEGATIVE Microbiology Date/Time Source Procedure Growth Status 04/21/24 11:54 Blood Blood Culture - Preliminary NO GROWTH AFTER 24 HOURS OF INCUBATION. Resulted Assessment 1. Abdominal pain 2. Acute pancreatitis, resolving 3. Ileus 4. Leukocytosis resolving 5. Hypokalemia Problems(with codes): (1) Acute abdominal pain (2) Nausea and vomiting (3) Homelessness (4) Abnormal finding on CT scan Plan/Recommendation 1. Clear liquid diet and advance as tolerated 2. Follow labs 3. We will place electrolytes 4. Pain control 5. Alcohol cessation 6. Discharge when the patient improves 7. We will follow Plan discussed with: Patient JU LUJAN MD Apr 22, 2024 18:24
[2024-04-23] VITALS (8 sets, daily range): BP systolic 119–133; BP diastolic 60–89; PULSE 66–94; RESP 17–20; TEMP 97.9–98.8; O2SAT 97–99
[2024-04-23 08:02] LABS: Alanine Aminotransferase 21 U/L (7-40); Anion Gap 9 (5-15); BUN/Creatinine Ratio 17.5 (10.0-20.0); Blood Urea Nitrogen 11 mg/dL (9-23); Carbon Dioxide 21 mmol/L (20-31); Chloride 106 mmol/L (98-107); Potassium 4.1 mmol/L (3.5-5.1); Sodium 136 mmol/L (136-145)
[2024-04-23 08:04] LABS: Albumin 3.5 g/dL (3.2-4.8); Aspartate Aminotransferase 18 U/L (13-40)
[2024-04-23 08:10] LABS: Alkaline Phosphatase 140 U/L (46-116); Bilirubin, Total 0.2 mg/dL (0.2-1.0); Calcium 8.6 mg/dL (8.7-10.4); Glucose 129 mg/dL (74-106); Total Protein 5.5 g/dL (5.7-8.2)
[2024-04-23 08:15] LABS: Basophils # (auto) 0.1 10 ^3/uL (0-0.2); Basophils % (auto) 0.7 % (0.0-2.0); Eosinophils # (auto) 0.4 10 ^3/uL (0-0.8); Eosinophils % (auto) 5.1 % (0.0-7.0); Hematocrit 33.9 % (41.0-53.0); Hemoglobin 11.3 g/dL (13.5-17.5); Lymphocytes # (auto) 1.8 10 ^3/uL (0.4-5.4); Lymphocytes % (auto) 24.6 % (10.0-50.0); Mean Corpuscular Hemoglobin 27.5 pg (28.0-32.0); Mean Corpuscular Hgb Conc. 33.3 g/dL (32.0-36.0); Mean Corpuscular Volume 82.7 fL (80.0-100.0); Monocytes # (auto) 0.9 10 ^3/uL (0-1.3); Monocytes % (auto) 12.4 % (0.0-12.0); Neutrophils # (auto) 4.1 10 ^3/uL (1.6-8.6); Neutrophils % (auto) 57.2 % (37.0-80.0); Platelet Count (auto) 433 10^3/uL (140-450); Red Cell Distribution Width 13.5 % (11.8-14.3); White Blood Cell 7.2 10^3/uL (4.4-10.8)
--- NOTE | 2024-04-23 17:13 | DVHPNRES ---
Progress Note Date Seen: Apr 23, 2024 Resident Creating Document: RENATO ZUÑIGA RESIDENT Has the PT tested + for MRSA If YES, has PT been informed?: No Medical Necessity Reason Pt with a Central, PICC or Fol: No Medical Necessity Reason abdominal pain kidney stone Subjective Review of Systems This is a 53-year-old male no past medical or surgical history presented to the ED with a chief complaint of abdominal pain for the past 2 days and still ongiong. Patient described the pain as been sharp pain and diffused thus prompting him to come to the ED. He denied vomitng, nausea, diarrhea, fever or chills. He denies any chest pain no shortness. His initial vitals were temperature 97.5 HR: 76 RR:18, BP:105/73 with SpO2 of 99%. Initial lab values included WBC 15.9, hemoglobin of 14.7 d-->11.2, platelet was 507 sodium was 128 and glucose was 155. Lipase: 49 CT scan abdomen pelvis completed showed acute pancreatitis and mild ileus. On my evaluation with the patient today, patient seems to be doing well. He has no abdominal pain, nausea, vomiting, headache no chest pain no palpitation. Patient said he is doing well he was given some antibiotics last night and he is doing better this morning with no abdominal pain and was asking for food. Patient is also homeless PN04/23/2024 patient is seen and examined today. During the time of my evaluation, he had complaints. He said he has no abdominal pains and he is feeling better. His vital signs stable and his labs are also unremarkable. lipase 49. Patient is currently homeless. Social service provided patient with resources for him to call and arrange with a facility or snf. Patient called some places with no concrete response. This evening, as I was about to discharge the patient, his nurse told me that the patient is complaining of abdominal pain again. Also, the admitting doctor consulted urologist regarding a nonobstructing kidney stones. Patient however denied any hematuria or flank pain. Objective vital signs Vital Sign Date Time Temp Pulse Resp B/P (MAP) Pulse Ox O2 Delivery O2 Flow Rate FiO2 04/23/24 13:01 98.7 66 20 133/89 (104) 98 98.7 04/23/24 08:00 Room Air* 0 21 Total Intake and Output 04/22/24 04/22/24 04/23/24 15:00 23:00 07:00 Intake Total 100 ml 1360 ml 920 ml Balance 100 ml 1360 ml 920 ml medications Current Medications Medications Dose Ordered Sig/Bhaskar Route Start Time Stop Time Status Last Admin Dose Admin Sodium Chloride 1,000 ml @ 120 mls/hr Q8H20M IV 04/21/24 12:45 04/23/24 05:55 120 MLS/HR Ondansetron HCl 4 mg Q4HP PRN IV 04/21/24 12:45 Docusate Sodium 100 mg BIDPRN PRN PO 04/21/24 12:45 Morphine Sulfate 2 mg Q4HPRN PRN IV 04/21/24 12:45 Enoxaparin Sodium 40 mg DAILY SC 04/21/24 12:45 04/22/24 12:20 40 MG Nitroglycerin 0.4 mg Q5MINP PRN SL 04/21/24 12:45 Examination General Appearance: Alert, Oriented X3, Cooperative, No acute distress HEENT: Atraumatic, PERRLA, EOMI, Mucous membrane moist/pink Respiratory: Clear to auscultation, Normal air movement Cardiovascular: Regular rate, Normal S1, Normal S2, No murmurs, no chest wall tenderness Abdominal: NO distention, no tenderness, bowel sounds present, no scars noted Extremities: No clubbing, No cyanosis, No edema, Normal pulses, No tenderness/swelling Skin: No rashes, No breakdown, No significant lesion Neuro: Normal gait, Normal speech, Strength at 5/5 X4 ext, Normal tone, Sensation intact, Cranial nerves 3-12 NL, Reflexes 2+ Psych/Mental Status: Mental status NL, Mood NL laboratory and microbiology Laboratory Tests 04/23/24 06:02 Test 04/23/24 06:02 Range/Units Serum Glucose 129 H 74-106 mg/dL Microbiology Date/Time Source Procedure Growth Status 04/21/24 11:54 Blood Blood Culture - Preliminary NO GROWTH AFTER 48 HOURS OF INCUBATION. Resulted Labs and/or images reviewed: Labs reviewed by me, Image(s) reviewed by me Problem List/Assessment/Plan Problem List/Assessment/Plan Assessment Abdominal pain: improved Acute intractable abdominal pain possible from pancreatitis and illeus Possible Acute ileus without obstruction and perforation Possible Acute pancreatitis on scan Acute leukocytosis--> Improved Hyponatremia Bilateral punctate nonobstructive kidney stones Amphetamine abuse Homeless Plan CBC CMP urology seeing patient Replace electrolytes Soft Mechanical diet Homeless Social service consult Status full: Code Goal of care discussed for 20 minutes Case and plan discussed and reviewed with Dr. De Plan discussed with: Patient, Other (RN) Addendum Addendum Addendum I was physically present for the thomas portions of the service provided to patient by THE RESIDENT. I have reviewed the documentation, discussed the case with resident and agree with the resident's documentation except as noted. Also the patient's clinical case was discussed with the patient's nurse. This medical document was created using an electronic medical record system with computerized dictation system. Although this document has been carefully reviewed, there might still be some phonetic and typographical errors. These areas are purely typographical due to imperfections of the software programs, and do not reflect any compromise in the patient's medical care. Late signature. Date of Service: Apr 23, 2024 Billing Provider: LISETTE DE MD Common Visit Codes: [id number] INP/OBS CARE(HIGH) Secondary Visit Codes: [id number] CARE PLAN 30 MINUTES (20 minutes) RENATO ZUÑIGA RESIDENT Apr 23, 2024 17:13 LISETTE DE MD Apr 24, 2024 21:54
[2024-04-24 08:00] VITALS: PULSE 68; RESP 19; O2SAT 99
[2024-04-24 08:56] LABS: Hematocrit 40.6 % (41.0-53.0); Hemoglobin 13.3 g/dL (13.5-17.5); Mean Corpuscular Hemoglobin 27.4 pg (28.0-32.0); Mean Corpuscular Hgb Conc. 32.8 g/dL (32.0-36.0); Mean Corpuscular Volume 83.5 fL (80.0-100.0); Platelet Count (auto) 511 10^3/uL (140-450); Red Blood Cells 4.86 10^6/uL (4.5-5.90); Red Cell Distribution Width 13.9 % (11.8-14.3); White Blood Cell 10.1 10^3/uL (4.4-10.8)
[2024-04-24 09:00] VITALS: BP 109/75; PULSE 68; RESP 14; TEMP 97.7; O2SAT 98
[2024-04-24 09:09] LABS: Anion Gap 8 (5-15); Carbon Dioxide 22 mmol/L (20-31); Chloride 106 mmol/L (98-107); Potassium 4.5 mmol/L (3.5-5.1)
[2024-04-24 09:10] LABS: Calcium 9.4 mg/dL (8.7-10.4)
[2024-04-24 09:15] LABS: BUN/Creatinine Ratio 14.1 (10.0-20.0); Blood Urea Nitrogen 9 mg/dL (9-23)
[2024-04-24 09:16] LABS: Basophils % (manual) 0 (0.0-2.0); Blast Cells 0; Glucose 139 mg/dL (74-106); Metamyelocytes % 0; Promyelocytes % 0; Sodium 136 mmol/L (136-145)
[2024-04-24 09:47] LABS: Band Neutrophils % (manual) 6; Eosinophils % (manual) 4 (0-7); Lymphocytes % (manual) 19 (10.0-50.0); Monocytes % (manual) 5 (0-12); Myelocytes % 1; Reactive Lymphocytes 1
[2024-04-24 09:49] LABS: Platelet Estimate Increased
--- NOTE | 2024-04-24 10:06 | PRN ---
Misceleneous Note Note Note April 24, 2024 Subjective: Patient is doing better and he was being discharged home. He denies any abdominal pain, is tolerating a diet. Vital Signs Date Time Temp Pulse Resp B/P (MAP) Pulse Ox O2 Delivery O2 Flow Rate FiO2 04/24/24 09:00 97.7 68 14 109/75 (86) 98 97.7 04/24/24 08:00 Room Air* 0 21 General: Alert and oriented x4 Regular rate and rhythm Soft nontender nondistended abdomen no masses No clubbing cyanosis or edema Neuro moves all four extremities Labs Test 04/24/24 08:45 04/23/24 06:02 04/22/24 06:38 04/21/24 11:54 Range/Units White Blood Count 10.1 # 4.4-10.8 10^3/uL Red Blood Count 4.86 4.5-5.90 10^6/uL Hemoglobin 13.3 #L 13.5-17.5 g/dL Hematocrit 40.6 #L 41.0-53.0 % Mean Corpuscular Volume 83.5 80.0-100.0 fL Mean Corpuscular Hemoglobin 27.4 L 28.0-32.0 pg Mean Corpuscular Hemoglobin Concent 32.8 32.0-36.0 g/dL Red Cell Distribution Width 13.9 11.8-14.3 % Platelet Count 511 H 140-450 10^3/uL Mean Platelet Volume 6.5 L 6.9-10.8 fL Neutrophils (%) (Auto) 37.0-80.0 % Lymphocytes (%) (Auto) 10.0-50.0 % Monocytes (%) (Auto) 0.0-12.0 % Basophils (%) (Auto) 0.0-2.0 % Neutrophils # (Auto) 1.6-8.6 10 ^3/uL Lymphocytes # (Auto) 0.4-5.4 10 ^3/uL Monocytes # (Auto) 0-1.3 10 ^3/uL Differential Total Cells Counted 100.0 100 Neutrophils % (Manual) 64 37.0-80.0 Band Neutrophils % (Manual) 6 Lymphocytes % (Manual) 19 10.0-50.0 Monocytes % (Manual) 5 0-12 Eosinophils % (Manual) 4 0-7 Basophils % (Manual) 0 0.0-2.0 Metamyelocytes % (manual) 0 Myelocytes % (Manual) 1 Promyelocytes % (Manual) 0 Blast Cells % (Manual) 0 Reactive Lymphocytes 1 Platelet Estimate Increased Sodium Level 136 136-145 mmol/L Potassium Level 4.5 3.5-5.1 mmol/L Chloride Level 106 98-107 mmol/L Carbon Dioxide Level 22 20-31 mmol/L Anion Gap 8 5-15 Blood Urea Nitrogen 9 9-23 mg/dL Creatinine 0.64 L 0.700-1.30 mg/dL Glomerular Filtration Rate Calc 115 >90 mL/min BUN/Creatinine Ratio 14.1 10.0-20.0 Serum Glucose 139 H 74-106 mg/dL Calcium Level 9.4 8.7-10.4 mg/dL Eosinophils (%) (Auto) 5.1 0.0-7.0 % Eosinophils # (Auto) 0.4 0-0.8 10 ^3/uL Basophils # (Auto) 0.1 0-0.2 10 ^3/uL Nucleated Red Blood Cells 0.0 % Total Bilirubin 0.2 0.2-1.0 mg/dL Aspartate Amino Transferase (AST) 18 13-40 U/L Alanine Aminotransferase (ALT) 21 7-40 U/L Alkaline Phosphatase 140 H 46-116 U/L Total Protein 5.5 L 5.7-8.2 g/dL Albumin 3.5 3.2-4.8 g/dL Lipase 49 12-53 U/L Lactic Acid Level 1.4 0.4-2.0 mmol/L Test 04/21/24 09:05 04/21/24 08:52 Range/Units Triglycerides Level 93 < 150 mg/dL Urine Opiates Screen Neg NEGATIVE Urine Fentanyl Screen Neg NEGATIVE Urine Barbiturates Screen Neg NEGATIVE Urine Phencyclidine Screen Neg NEGATIVE Urine Amphetamines Screen Pos NEGATIVE Urine Benzodiazepines Screen Neg NEGATIVE Urine Cocaine Screen Neg NEGATIVE Urine Cannabinoids Screen Neg NEGATIVE Microbiology Date/Time Source Procedure Growth Status 04/21/24 11:54 Blood Blood Culture - Preliminary NO GROWTH AFTER 48 HOURS OF INCUBATION. Resulted Impression: 1. Acute pancreatitis resolving Recommendations: 1. Discharge home 2. Outpatient follow up with GI 3. Avoid alcohol 4. Consider cholecystectomy JU LUJAN MD Apr 24, 2024 10:06
--- NOTE | 2024-04-24 10:37 | DVHPN2 ---
Subjective Did not share any complaints Reviewed: Care Plan, H&P, Labs, Medications, Previous Orders, Radiology, Other (Consultation) Changes from previous H/P or p: Changes Objective Vitals Vital Signs Date Time Temp Pulse Resp B/P (MAP) Pulse Ox O2 Delivery O2 Flow Rate FiO2 04/24/24 09:00 97.7 68 14 109/75 (86) 98 97.7 04/24/24 08:00 Room Air* 0 21 Intake/Output Intake and Output 04/24/24 07:00 Intake Total 1900 ml Balance 1900 ml Intake Oral 900 ml IV Total 1000 ml # Voids 8 General Appearance: Alert, Oriented X3, Cooperative, No acute distress HEENT: Atraumatic Lungs: Clear to auscultation, Normal air movement Cardiovascular: Regular rate, Normal S1, Normal S2 Abdomen: Normal bowel sounds, Soft, No tenderness Neuro: Normal speech, Cranial nerves 3-12 NL Psych/Mental Status: Mental status NL, Mood NL Medications Current Medications Medications Dose Ordered Sig/Bhaskar Route Start Time Stop Time Status Last Admin Dose Admin Sodium Chloride 1,000 ml @ 120 mls/hr Q8H20M IV 04/21/24 12:45 04/24/24 06:02 120 MLS/HR Ondansetron HCl 4 mg Q4HP PRN IV 04/21/24 12:45 Docusate Sodium 100 mg BIDPRN PRN PO 04/21/24 12:45 Morphine Sulfate 2 mg Q4HPRN PRN IV 04/21/24 12:45 Enoxaparin Sodium 40 mg DAILY SC 04/21/24 12:45 04/22/24 12:20 40 MG Nitroglycerin 0.4 mg Q5MINP PRN SL 04/21/24 12:45 Laboratory Results Laboratory Tests 04/24/24 08:45 Chemistry Test 04/24/24 08:45 Calcium Level 9.4 mg/dL (8.7-10.4) Microbiology Microbiology Date/Time Source Procedure Growth Status 04/21/24 11:54 Blood Blood Culture - Preliminary NO GROWTH AFTER 48 HOURS OF INCUBATION. Resulted Labs and/or images reviewed: Labs reviewed by me, Image(s) reviewed by me Assessment/Plan Assessment/Plan Covering Dr. Mcmahan: #Abdominal pain due to acute pancreatitis #Acute leukocytosis due to acute pancreatitis #Bilateral punctate nonobstructive kidney stones; no active issues #Polysubstance use disorder including alcohol and amphetamine #Homelessness #Thrombocytosis; unclear etiology of recurrence #Normocytic anemia; most likely inflammatory To advance to regular diet To continue IV fluids GI is following Counseled on cessation of alcohol and amphetamine use Patient did not find a longterm yet; cold weather outside so will not leave at this time; Editor Department is following Reviewed available imaging studies and blood cultures No signs/symptoms of active bleeding or active infection Continue monitoring Late Entry. This medical document was created using an electronic medical record system with computerized dictation system. Although this document has been carefully reviewed, there might still be some phonetic and typographical errors. These areas are purely typographical due to imperfections of the software programs, and do not reflect any compromise in the patient's medical care. Plan discussed with: Patient, Other (Nurse) Date of Service: Apr 24, 2024 Billing Provider: LISETTE DE MD Common Visit Codes: [id number] INP/OBS CARE(HIGH) LISETTE DE MD Apr 24, 2024 10:37
[2024-04-24 12:44] VITALS: BP 132/88; PULSE 66; RESP 14; TEMP 97.6; O2SAT 100
[2024-04-24 16:57] VITALS: BP 148/89; PULSE 70; RESP 16; TEMP 97.4; O2SAT 100
[2024-04-24 20:00] VITALS: PULSE 70; RESP 0; O2SAT 100
[2024-04-24 21:00] VITALS: BP 127/79; PULSE 72; RESP 18; TEMP 97.9; O2SAT 97
[2024-04-25 01:00] VITALS: BP 111/66; PULSE 77; RESP 18; TEMP 98.2; O2SAT 98
[2024-04-25 05:00] VITALS: BP 126/80; PULSE 90; RESP 18; TEMP 97.8; O2SAT 95
--- NOTE | 2024-04-25 07:26 | DVH ---
EXAM: XR Chest, 1 View CLINICAL INDICATION: pre-op TECHNIQUE: Frontal view of the chest. COMPARISON: None FINDINGS: LUNGS AND PLEURAL SPACES: Unremarkable. No consolidation. No pneumothorax. HEART: Unremarkable. No cardiomegaly. MEDIASTINUM: Unremarkable. Normal mediastinal contour. BONES/JOINTS: Unremarkable. No acute fracture. OTHER FINDINGS: . . IMPRESSION: No acute cardiopulmonary process.
[2024-04-25 07:33] LABS: Basophils # (auto) 0.1 10 ^3/uL (0-0.2); Eosinophils # (auto) 0.7 10 ^3/uL (0-0.8); Hemoglobin 12.5 g/dL (13.5-17.5); Monocytes # (auto) 0.9 10 ^3/uL (0-1.3)
[2024-04-25 07:39] LABS: Basophils % (auto) 0.7 % (0.0-2.0); Eosinophils % (auto) 7.5 % (0.0-7.0); Hematocrit 37.4 % (41.0-53.0); Lymphocytes % (auto) 21.3 % (10.0-50.0); Mean Corpuscular Hemoglobin 27.4 pg (28.0-32.0); Mean Corpuscular Hgb Conc. 33.6 g/dL (32.0-36.0); Mean Corpuscular Volume 81.8 fL (80.0-100.0); Monocytes % (auto) 9.7 % (0.0-12.0); Neutrophils # (auto) 5.7 10 ^3/uL (1.6-8.6); Neutrophils % (auto) 60.8 % (37.0-80.0); Nucleated Red Blood Cells % 0.2 %; Platelet Count (auto) 504 10^3/uL (140-450); Red Blood Cells 4.57 10^6/uL (4.5-5.90); Red Cell Distribution Width 13.7 % (11.8-14.3); White Blood Cell 9.4 10^3/uL (4.4-10.8)
[2024-04-25 07:41] VITALS: PULSE 77; RESP 16; O2SAT 96
[2024-04-25 07:54] LABS: Albumin 3.8 g/dL (3.2-4.8); Anion Gap 8 (5-15); Aspartate Aminotransferase 33 U/L (13-40); BUN/Creatinine Ratio 14.5 (10.0-20.0); Blood Urea Nitrogen 10 mg/dL (9-23); Carbon Dioxide 23 mmol/L (20-31); Chloride 105 mmol/L (98-107); Potassium 4.2 mmol/L (3.5-5.1); Sodium 136 mmol/L (136-145); Total Protein 5.9 g/dL (5.7-8.2)
[2024-04-25 08:07] LABS: Alanine Aminotransferase 68 U/L (7-40); Alkaline Phosphatase 128 U/L (46-116); Bilirubin, Total 0.2 mg/dL (0.2-1.0); Glucose 118 mg/dL (74-106)
[2024-04-25 09:00] VITALS: BP 112/70; PULSE 70; RESP 16; TEMP 98.1; O2SAT 98
[2024-04-25] MEDS: INFLUENZA TRIVALENT 2024-2025 0.5 ML INJ IM ONE (12:43)
[2024-04-25 13:00] VITALS: BP 133/78; PULSE 71; RESP 16; TEMP 97.8; O2SAT 99
[2024-04-25 13:10] VITALS: BP 112/70; PULSE 70; RESP 16; TEMP 98.1; O2SAT 98
--- NOTE | 2024-04-25 15:12 | DVHDSRES ---
Discharge Summary Date of Admission Resident Creating Document: RENATO ZUÑIGA RESIDENT Apr 21, 2024 at 12:43 Date of Discharge: Apr 25, 2024 Admitting Diagnosis Abdominal pain Labs/Diagnostic Data: PATIENT: FOSTER LAST ACCT: [id number] UNIT: [id number] : 1970 LOC: ER ROOM / BED: / AGE / SEX: 53 / M ADM STATUS: REG ER SERVICE 1124 ORDERING PHYSICIAN: ROLAND REINA MD PROCEDURE(s): ABPL - CT AB PEL WO CON-NO ORAL OR IV REASON: colitis ORDER NUMBER(s): [id number], ACCESSION NUMBER(s): [id number] CT CT AB PEL WO CON-NO ORAL OR IV INDICATION: colitis EXAM DATE: 04/21/2024 11:38 AM COMPARISON: CT CT AB PEL WO CON-NO ORAL OR IV on DOS: 03/12/24 RADIATION DOSE: CTDIvol: 6 mGy, DLP: 327 mGy*cm PROCEDURE: Helical CT images were obtained of the abdomen and pelvis without IV contrast Sagittal and coronal reconstructions are provided. ORAL CONTRAST: None. ADDITIONAL IMAGES / REFORMATS: None All CT scans at this medical facility are performed using dose modulation techniques as appropriate to a performed exam including the following: Automated exposure control was utilized; adjustment of the MA and/or KV according to patient size; and use of iterative reconstruction technique. FINDINGS: LUNG BASE: Normal. LIVER: Normal. GALLBLADDER AND BILIARY TREE: No calcified gallstones. Normal caliber wall. No intra- or extrahepatic biliary ductal dilation. PANCREAS: Moderate peripancreatic fat stranding can be seen with acute pancreatitis. SPLEEN: Normal. BOWEL: Focal dilation loop of small bowel could be seen with focal ileus. Normal appendix. ADRENALS: Normal. KIDNEYS AND URETER: Bilateral punctate nonobstructive kidney stones. BLADDER: Normal. REPRODUCTIVE ORGANS: Normal. LYMPH NODES:No lymphadenopathy. PERITONEUM: No ascites or free air. No other fluid collection. VESSELS: Scattered atherosclerotic calcifications are noted. RETROPERITONEUM: Normal. ABDOMINAL WALL: Normal. BONES: Scattered osseous degenerative changes are noted. IMPRESSION: Moderate peripancreatic fat stranding can be seen with acute pancreatitis. Focal dilation loop of small bowel could be seen with focal ileus. Bilateral punctate nonobstructive kidney stones. ATED BY: RAHEEM SMITH MD DICTATED DATE/TIME: 04/21/24 1158 PATIENT: FOSTER LAST ACCT: [id number] UNIT: [id number] : 1970 LOC: [facility] ROOM / BED: [address] [place] [address] AGE / SEX: 53 / M ADM STATUS: ADM IN SERVICE 0606 ORDERING PHYSICIAN: ABDULKADIR OMER RESIDENT PROCEDURE(s): CXRP - CHEST PORTABLE REASON: pre-op ORDER NUMBER(s): [id number], ACCESSION NUMBER(s): [id number] EXAM: XR Chest, 1 View CLINICAL INDICATION: pre-op TECHNIQUE: Frontal view of the chest. COMPARISON: None FINDINGS: LUNGS AND PLEURAL SPACES: Unremarkable. No consolidation. No pneumothorax. HEART: Unremarkable. No cardiomegaly. MEDIASTINUM: Unremarkable. Normal mediastinal contour. BONES/JOINTS: Unremarkable. No acute fracture. OTHER FINDINGS: . . IMPRESSION: No acute cardiopulmonary process. ATED BY: DANTE ROSE MD DICTATED DATE/TIME: 04/25/24 0723 Laboratory Results Test 04/25/24 07:10 04/24/24 08:45 04/22/24 06:38 04/21/24 11:54 White Blood Count 9.4 10^3/uL (4.4-10.8) Red Blood Count 4.57 10^6/uL (4.5-5.90) Hemoglobin 12.5 g/dL (13.5-17.5) Hematocrit 37.4 % (41.0-53.0) Mean Corpuscular Volume 81.8 fL (80.0-100.0) Mean Corpuscular Hemoglobin 27.4 pg (28.0-32.0) Mean Corpuscular Hemoglobin Concent 33.6 g/dL (32.0-36.0) Red Cell Distribution Width 13.7 % (11.8-14.3) Platelet Count 504 10^3/uL (140-450) Mean Platelet Volume 6.3 fL (6.9-10.8) Neutrophils (%) (Auto) 60.8 % (37.0-80.0) Lymphocytes (%) (Auto) 21.3 % (10.0-50.0) Monocytes (%) (Auto) 9.7 % (0.0-12.0) Eosinophils (%) (Auto) 7.5 % (0.0-7.0) Basophils (%) (Auto) 0.7 % (0.0-2.0) Neutrophils # (Auto) 5.7 10 ^3/uL (1.6-8.6) Lymphocytes # (Auto) 2.0 10 ^3/uL (0.4-5.4) Monocytes # (Auto) 0.9 10 ^3/uL (0-1.3) Eosinophils # (Auto) 0.7 10 ^3/uL (0-0.8) Basophils # (Auto) 0.1 10 ^3/uL (0-0.2) Nucleated Red Blood Cells 0.2 % Sodium Level 136 mmol/L (136-145) Potassium Level 4.2 mmol/L (3.5-5.1) Chloride Level 105 mmol/L (98-107) Carbon Dioxide Level 23 mmol/L (20-31) Anion Gap 8 (5-15) Blood Urea Nitrogen 10 mg/dL (9-23) Creatinine 0.69 mg/dL (0.700-1.30) Glomerular Filtration Rate Calc 112 mL/min (>90) BUN/Creatinine Ratio 14.5 (10.0-20.0) Serum Glucose 118 mg/dL (74-106) Calcium Level 9.0 mg/dL (8.7-10.4) Total Bilirubin 0.2 mg/dL (0.2-1.0) Aspartate Amino Transferase (AST) 33 U/L (13-40) Alanine Aminotransferase (ALT) 68 U/L (7-40) Alkaline Phosphatase 128 U/L (46-116) Total Protein 5.9 g/dL (5.7-8.2) Albumin 3.8 g/dL (3.2-4.8) Differential Total Cells Counted 100.0 (100) Neutrophils % (Manual) 64 (37.0-80.0) Band Neutrophils % (Manual) 6 Lymphocytes % (Manual) 19 (10.0-50.0) Monocytes % (Manual) 5 (0-12) Eosinophils % (Manual) 4 (0-7) Basophils % (Manual) 0 (0.0-2.0) Metamyelocytes % (manual) 0 Myelocytes % (Manual) 1 Promyelocytes % (Manual) 0 Blast Cells % (Manual) 0 Reactive Lymphocytes 1 Platelet Estimate Increased Lipase 49 U/L (12-53) Lactic Acid Level 1.4 mmol/L (0.4-2.0) Test 04/21/24 09:05 04/21/24 08:52 Triglycerides Level 93 mg/dL (< 150) Urine Opiates Screen Neg (NEGATIVE) Urine Fentanyl Screen Neg (NEGATIVE) Urine Barbiturates Screen Neg (NEGATIVE) Urine Phencyclidine Screen Neg (NEGATIVE) Urine Amphetamines Screen Pos (NEGATIVE) Urine Benzodiazepines Screen Neg (NEGATIVE) Urine Cocaine Screen Neg (NEGATIVE) Urine Cannabinoids Screen Neg (NEGATIVE) Other Laboratory Tests 04/25/24 07:10 Brief Hx & Hospital Course: Hospitals Course This 53-year-old male with a history of drug and alcohol abuse, presented to the ED with a chief complaint of abdominal pain for the 2 days prior to presentation. Patient described the pain as been sharp pain and diffused. He denied nausea and vomiting, diarrhea, fever or chills, dysuria or hematuria. He denies any chest pain or shortness. Initials vitals were temperature 97.5 HR: 76, RR:18, BP:105/73 with SpO2 of 99%. Initial lab values included WBC 15.9, hemoglobin of 14.7 d-->11.2, platelet was 507 sodium was 128 and glucose was 155. Lipase: 49. CT scan abdomen pelvis completed showed acute pancreatitis and mild ileus. He received antibiotics, fluids and corrected electrolytes. By the next couple of days, patient felt better. He denied any abdominal pain nausea vomiting fever. He saw the urologist for nonobstructive nephrolithiasis that were noted on CT abdomen. Nothing to be done inpatient. Patient is homeless case. asphalt dauber have given patient resources to call facilities where he would like to stay. Patient did call at the end of the day patient is willing to be discharged and said he will figure it out. Overall patient is doing well. Prior to discharge patient has been counseled extensively on drug and alcohol cessation. Patient was admonised to seek help from detoxification group. Examination General Appearance: Alert, Oriented X3, Cooperative, No acute distress HEENT: Atraumatic, PERRLA, EOMI, Mucous membrane moist/pink Respiratory: Clear to auscultation, Normal air movement Cardiovascular: Regular rate, Normal S1, Normal S2, No murmurs, no chest wall tenderness Abdominal: NO distention, no tenderness, bowel sounds present, no scars noted Extremities: No clubbing, No cyanosis, No edema, Normal pulses, No tenderness/swelling Skin: No rashes, No breakdown, No significant lesion Neuro: Normal gait, Normal speech, Strength at 5/5 X4 ext, Normal tone, Sensation intact, Cranial nerves 3-12 NL, Reflexes 2+ Psych/Mental Status: Mental status NL, Mood NL laboratory and microbiology Diagnosis Abdominal pain: improved Acute intractable abdominal pain possible from pancreatitis and illeus Possible Acute ileus without obstruction and perforation Possible Acute pancreatitis on scan Acute leukocytosis--> Improved Hyponatremia Bilateral punctate nonobstructive kidney stones Amphetamine abuse Homeless Discharge plan Advised to reach out to family members where he can stay Patient encouraged to seek help with his drug abuse and he said he will try and he is trying Patient provided resource information to call shelters where he can be house until he finds a permanent place Continue home medications Plan was discussed with Dr. Ellis Consults/Reason for consult Acute pancreatitis Condition at Discharge: Good Final Diagnosis/Problems List Abdominal pain: improved Acute intractable abdominal pain possible from pancreatitis and illeus Possible Acute ileus without obstruction and perforation Possible Acute pancreatitis on scan Acute leukocytosis--> Improved Hyponatremia Bilateral punctate nonobstructive kidney stones Amphetamine abuse Homeless Discharge Disposition: Home Discharge Instruct/Medications Diet: Regular Activity: No Restrictions, As Tolerated Follow Up/Referral: 7 days at the discharge clinic Medications: Continue home medication Discharge Statement: "Patient was advised to return to the ER or call 911 if any headaches, dizziness, shortness of breath, chest pain, abdominal pain, bleeding, fevers, or worsening of medical condition. Patient was counseled about treatment plan, medications, possible side effects, patientverbalized understanding. All questions were answered to the best of my ability. This discharge took greater then 30 minutes in planning, reviewing documentation, counseling the patient, and discussing with other team members." ASSESSMENT ASSESSMENT Assessment Abdominal Pain d/t acute pancreatis Date of Service: Apr 25, 2024 Billing Provider: WESLEY ELLIS MD Common Visit Codes: 11403-JVE/OBS DISCH DAY >30min RENATO ZUÑIGA RESIDENT Apr 25, 2024 15:12 WESLEY ELLIS MD Apr 26, 2024 11:13
== END 2024-04-25 14:57 | disposition home or self-care (01) | DRG 282 ==
LOC: ER 08:34 → OVERFLOW 12:43 → WEST WING 23:28
PROVIDERS: ADMIT Internal Medicine; ATTEND Internal Medicine
DX: K85.90 Acute pancreatitis without necrosis or infection, unspecified (principal); K56.7 Ileus, unspecified; E87.1 Hypo-osmolality and hyponatremia; K52.9 Noninfective gastroenteritis and colitis, unspecified; E86.0 Dehydration; D72.829 Elevated white blood cell count, unspecified; N20.0 Calculus of kidney; F15.90 Other stimulant use, unspecified, uncomplicated; D75.839 Thrombocytosis, unspecified; D64.9 Anemia, unspecified; E87.6 Hypokalemia; F17.210 Nicotine dependence, cigarettes, uncomplicated; Z59.00 Homelessness unspecified
CPT/HCPCS: 36415; 71045; 74176; 80048; 80053; 80307; 83605; 83690; 84478; 85007; 85025; 85027; 87040; 90656; 96365; 96375; G0378; J2003; J2405; J2543; J3490

== ENCOUNTER 2024-06-02 14:20 | Emergency (ER) | payer MEDICAID ==
[~2024-06-02] VITALS: Ht 175.3 cm; Wt 59.1 kg
--- NOTE | 2024-06-02 15:33 | ED.PDOC ---
General HPI Comments A 53 YEAR OLD MALE PRESENTS TO THE ED WITH CHIEF COMPLAINT OF DYSURIA. PATIENT REPORTS THAT HE HAS BEEN EXPERIENCING BURNING URINATION FOR THE PAST 3 DAYS. PATIENT DENIES ANY HEMATURIA, FLANK PAIN, ABDOMINAL PAIN, FEVER, OR CHILLS. NO OTHER SYMPTOMS REPORTED AT THIS TIME OF CARE. Chief Complaint: Urinary Time Seen by MD: 15:29 Primary Care Provider: UNKNOWN Reviewed notes: Nurses Notes, Medications, Allergies Allergies: Coded Allergies: NO KNOWN ALLERGIES (Unverified , 03/12/24) Home Meds No Active Prescriptions or Reported Meds Information Source: Patient Mode of Arrival: Ambulatory Severity: Mild, Moderate Inability to void: None Timing: Days Duration: Since onset Prehospital treatment: None Onset: Spontaneous Symptoms: Dysuria History of: None Location: None Penile discharge: None Modifying factors: None associated signs and symptoms: Dysuria Past Medical History PAST MEDICAL HISTORY: Anxiety Surgical History: Denies all surgeries Family History Family History: Unknown Social History Smoker: Cigarettes, Less Than 1 Pack/Day Alcohol: Occasionally Drugs: Methamphetamine Lives In: Homeless Constitutional: reports: others (ANXIOUS ); denies: chills, diaphoresis, fatigue, fever, malaise, sweats, weakness EENTM: denies: blurred vision, double vision, ear bleeding, ear discharge, ear drainage, ear pain, ear ringing, eye pain, eye redness, hearing loss, mouth pain, mouth swelling, nasal discharge, nose bleeding, nose congestion, nose pain, photophobia, tearing, throat pain, throat swelling, voice changes, others Respiratory: denies: cough, hemoptysis, orthopnea, SOB at rest, shortness of breath, SOB with excertion, stridor, wheezing, others Cardiovascular: denies: chest pain, dizzy spells, diaphoresis, Dyspnea on exertion, edema, irregular heart beat, left arm pain, lightheadedness, palpitations, PND, syncope, others Gastrointestinal: denies: abdomen distended, abdominal pain, blood streaked bowels, constipated, diarrhea, dysphagia, difficulty swallowing, hematemesis, melena, nausea, poor appetite, poor fluid intake, rectal bleeding, rectal pain, vomiting, others Genitourinary: reports: dysuria; denies: burning, flank pain, frequency, hematuria, incontinence, penile discharge, penile sore, pain, testicle pain, testicle swelling, urgency, others Neurological: denies: dizziness, fainting, headache, left sided numbness, left sided weakness, numbness, paresthesia, pre-existing deficit, right sided numbness, right sided weakness, seizure, speech problems, tingling, tremors, weakness, others Musculoskeletal: denies: back pain, gout, joint pain, joint swelling, muscle pain, muscle stiffness, neck pain, others Integumetry: denies: bruises, change in color, change in hair/nails, dryness, laceration, lesions, lumps, rash, wounds, others Allergic/Immunocompromised: denies: Difficulty Healing, Frequent Infections, Hives, Itching, others Hematologic/Lymphatic: denies: anemia, blood clots, easy bleeding, easy bruising, swollen glands, others Endocrine: denies: excessive hunger, excessive sweating, excessive thirst, excessive urination, flushing, intolerance to cold, intolerance to heat, unexplained weight gain, unexplained weight loss, others Psychiatric: denies: anxiety, bipolar disorder, depression, hopeless, panic disorder, schizophrenia, sleepless, suicidal, others All Other Systems: Reviewed and Negative Physical Exam General Appearance: No Apparent Distress, Normal, Other (ANXIOUS ) HEENT: Normal ENT Inspection, PERRL/EOMI Neck: Full Range of Motion, Non-Tender, Normal, Normal Inspection Respiratory: Chest Non-Tender, Lungs Clear, No Accessory Muscle Use, No Respiratory Distress, Normal Breath Sounds Cardiovascular: No Edema, No JVD, No Murmur, No Gallop, Normal Peripheral Pulses, Regular Rate/Rhythm Breast Exam: Deferred Gastrointestinal: No Organomegaly, Non Tender, No Pulsatile Mass, Normal Bowel Sounds, Soft Genitalia: Deferred Pelvic: Deferred Rectal: Deferred Extremities: No calf tenderness, Normal capillary refill, Normal inspection, Normal range of motion, Non-tender, No pedal edema Musculoskeletal : Apperance: Normal Neurologic: Alert, collections specialist II-XII nml as Tested, No Motor Deficits, Normal Affect, Normal Mood, No Sensory Deficits Cerebellar Function: Normal Reflexes: Normal Skin: Dry, Normal Color, Warm Peripheral Pulses: 2+ carotid (R), 2+ carotid (L), 2+ dorsalis pedis (R), 2+ dorsalis pedis (L) Lymphatic: No Adenopathy Was a procedure done? Was a procedure done?: No Differential Diagnosis Kidney stone (Female): N/A Penile/Scrotal: STD Urinary Problem (Male): Urethritis, Urolithiasis, UTI X-Ray, Labs, Meds, VS Vital Signs Date Time Temp Pulse Resp B/P (MAP) Pulse Ox O2 Delivery O2 Flow Rate FiO2 06/02/24 15:34 99 18 97 Room Air 06/02/24 15:34 97.9 99 18 131/97 (108) 97 97.9 06/02/24 15:28 97.9 99 18 131/97 (108) 97 X-Ray, Labs, Meds, VS Comment EXTERNAL MEDICAL RECORDS REVIEWED: [NONE] INDEPENDENT HISTORIANS: [NONE] SOCIAL DETERMINANTS OF HEALTH: METHAMPHETAMINE USE LABS ORDERED: UA, UDS REVIEWED AND INTERPRETED RESULTS: NONE IMAGING ORDERED: NONE TREATMENTS ORDERED: NONE PROCEDURES PERFORMED: NONE CRITICAL CARE TIME: NONE I HAVE DISCUSSED THE PATIENT WITH THE ATTENDING PHYSICIAN DR. REINA AND HE AGREES WITH THE PATIENT'S PLAN OF CARE AND DISPOSITION. BASED ON HISTORY OF PRESENT ILLNESS, AND PHYSICAL EXAM, PATIENT WILL BE DISCHARGED HOME. DISCUSSED PLAN FOR DISCHARGE HOME WITH RX. MEDICATION WARNINGS GIVEN. SHARED DECISION MAKING: DISCUSSED WITH PATIENT THAT THEIR WORKUP WAS NORMAL. PATIENT INSTRUCTED TO FOLLOW UP WITH PRIMARY CARE PROVIDER IN 1-2 DAYS FOR RE- EVALUATION OF SYMPTOMS. PATIENT VERBALIZES UNDERSTANDING TO RETURN TO ED FOR NEW OR WORSENING SYMPTOMS OR IF FOLLOW UP WITH PCP CANNOT BE OBTAINED. PATIENT FEELS COMFORTABLE GOING HOME AT THIS TIME. ALL QUESTIONS ADDRESSED AT TIME OF DISCHARGE. Time of 1ST Reevaluation: 16:20 Reevaluation 1ST: Unchanged Patient Education/Counseling: Diagnosis, Treatment Family Education/Counseling: Diagnosis, Treatment Departure 1 Departure Time of Disposition: 16:21 Impression: Primary Impression: UTI symptoms Disposition: 07 LEFT AWOL/ELOPED Condition: Stable e-Prescriptions No Active Prescriptions or Reported Meds Critical Care Note Critical Care Time?: No Stability Stability form required: No Heart Score Heart Score: Heart Score Response (Comments) Value History N/A 0 EKG N/A 0 Age N/A 0 Risk Factors N/A 0 Troponin N/A 0 Total 0 I personally scribed for MONTSE COHN ([email or web address]) on 06/02/24 at 15:33. Electronically submitted by Parmjit Schneider ([email or web address]). MONTSE COHN Jun 02, 2024 15:33
[2024-06-02 15:34] VITALS: BP 131/97; PULSE 99; RESP 18; TEMP 97.9; O2SAT 97
== END 2024-06-02 17:31 | disposition home or self-care (01) ==
LOC: ER 14:20
DX: N39.0 Urinary tract infection, site not specified (principal); F41.9 Anxiety disorder, unspecified; F17.210 Nicotine dependence, cigarettes, uncomplicated; Z59.00 Homelessness unspecified

== ENCOUNTER 2024-06-24 11:25 | Emergency (ER) | payer MEDICAID ==
[~2024-06-24] VITALS: Ht 175.3 cm; Wt 65.0 kg
[2024-06-24 12:54] VITALS: BP 137/87; PULSE 92; RESP 18; TEMP 98.1; O2SAT 97
[2024-06-24 13:25] LABS: Urine Bacteria None Seen /hpf (None Seen)
--- NOTE | 2024-06-24 13:31 | ED.PDOC ---
General HPI Comments A 53 YEAR OLD MALE PRESENTS TO THE ED WITH COMPLAINT OF UTI SYMPTOMS. PATIENT STATES HE HAS BEEN EXPERIENCING URINARY URGENCY AND FREQUENCY FOR THE PAST 1 WEEK. PATIENT DENIES HEMATURIA, FLANK PAIN, PENILE DISCHARGE, FEVER, CHILLS, SHORTNESS OF BREATH, CHEST PAIN, ABDOMINAL PAIN, NAUSEA, VOMITING, HEADACHE, OR OTHER COMPLAINTS. NO OTHER SYMPTOMS OR MODIFYING FACTORS AT THIS TIME. PATIENT IS ALERT, ORIENTED X 4, AND HAS STEADY GAIT. Chief Complaint: Urinary Time Seen by MD: 12:07 Primary Care Provider: NONE Reviewed notes: Nurses Notes, Medications, Allergies Allergies: Coded Allergies: NO KNOWN ALLERGIES (Unverified , 03/12/24) Home Meds No Active Prescriptions or Reported Meds Information Source: Patient Mode of Arrival: Ambulatory Severity: Mild Inability to void: None Timing: Days Duration: Since onset, Days Prehospital treatment: None Onset: Spontaneous Symptoms: Frequency, Urgency History of: None Location: None Penile discharge: None Modifying factors: None associated signs and symptoms: Frequency, Urgency Past Medical History PAST MEDICAL HISTORY: Anxiety Surgical History: Denies all surgeries Family History Family History: Reviewed,noncontributory to illness Social History Smoker: Cigarettes, Less Than 1 Pack/Day Alcohol: Occasionally Drugs: Methamphetamine Lives In: Homeless Constitutional: denies: chills, diaphoresis, fatigue, fever, malaise, sweats, weakness, others EENTM: denies: blurred vision, double vision, ear bleeding, ear discharge, ear drainage, ear pain, ear ringing, eye pain, eye redness, hearing loss, mouth pain, mouth swelling, nasal discharge, nose bleeding, nose congestion, nose pain, photophobia, tearing, throat pain, throat swelling, voice changes, others Respiratory: denies: cough, hemoptysis, orthopnea, SOB at rest, shortness of breath, SOB with excertion, stridor, wheezing, others Cardiovascular: denies: chest pain, dizzy spells, diaphoresis, Dyspnea on exertion, edema, irregular heart beat, left arm pain, lightheadedness, palpitations, PND, syncope, others Gastrointestinal: denies: abdomen distended, abdominal pain, blood streaked bowels, constipated, diarrhea, dysphagia, difficulty swallowing, hematemesis, melena, nausea, poor appetite, poor fluid intake, rectal bleeding, rectal pain, vomiting, others Genitourinary: reports: burning, frequency, urgency; denies: dysuria, flank pain, hematuria, incontinence, penile discharge, penile sore, pain, testicle pain, testicle swelling, others Neurological: denies: dizziness, fainting, headache, left sided numbness, left sided weakness, numbness, paresthesia, pre-existing deficit, right sided numbness, right sided weakness, seizure, speech problems, tingling, tremors, weakness, others Musculoskeletal: denies: back pain, gout, joint pain, joint swelling, muscle pain, muscle stiffness, neck pain, others Integumetry: denies: bruises, change in color, change in hair/nails, dryness, laceration, lesions, lumps, rash, wounds, others Allergic/Immunocompromised: denies: Difficulty Healing, Frequent Infections, Hives, Itching, others Hematologic/Lymphatic: denies: anemia, blood clots, easy bleeding, easy bruising, swollen glands, others Endocrine: denies: excessive hunger, excessive sweating, excessive thirst, excessive urination, flushing, intolerance to cold, intolerance to heat, unexplained weight gain, unexplained weight loss, others Psychiatric: reports: anxiety; denies: bipolar disorder, depression, hopeless, panic disorder, schizophrenia, sleepless, suicidal, others All Other Systems: Reviewed and Negative Physical Exam General Appearance: No Apparent Distress, Normal HEENT: Normal ENT Inspection, PERRL/EOMI, Pharynx Normal, TMs Normal Neck: Full Range of Motion, Non-Tender, Normal, Normal Inspection Respiratory: Chest Non-Tender, Lungs Clear, No Accessory Muscle Use, No Respiratory Distress, Normal Breath Sounds Cardiovascular: No Edema, No JVD, No Murmur, No Gallop, Normal Peripheral Puls es, Regular Rate/Rhythm Breast Exam: Deferred Gastrointestinal: No Organomegaly, Non Tender, No Pulsatile Mass, Normal Bowel Sounds, Soft Genitalia: Deferred Pelvic: Deferred Rectal: Deferred Extremities: No calf tenderness, Normal capillary refill, Normal inspection, Normal range of motion, Non-tender, No pedal edema Musculoskeletal : Apperance: Normal Neurologic: Alert, smoke and flame specialist II-XII nml as Tested, No Motor Deficits, Normal Affect, Normal Mood, No Sensory Deficits Cerebellar Function: Normal Reflexes: Normal Skin: Dry, Normal Color, Warm Peripheral Pulses: 2+ carotid (R), 2+ carotid (L) Lymphatic: No Adenopathy Was a procedure done? Was a procedure done?: No Differential Diagnosis Kidney stone (Female): N/A Kidney stone (Male): N/A Penile/Scrotal: STD, Urolithiasis, N/A Urinary Problem (Male): Urethritis, Urolithiasis, UTI Urinary Problem (Female): N/A X-Ray, Labs, Meds, VS Vital Signs Date Time Temp Pulse Resp B/P (MAP) Pulse Ox O2 Delivery O2 Flow Rate FiO2 06/24/24 12:54 92 18 97 Room Air 06/24/24 12:54 98.1 92 18 137/87 (104) 97 98.1 06/24/24 11:43 97.8 96 20 140/90 (107) 98 97.8 Lab Test 06/24/24 13:24 Range/Units Urine Color Light-yellow Yellow Urine Clarity Clear Clear Urine pH 6.0 5.0-9.0 Urine Specific [place] 1.013 1.001-1.035 Urine Protein Negative Negative Urine Ketones Negative Negative Urine Blood Negative Negative /uL Urine Nitrite Negative Negative Urine Bilirubin Negative Negative Urine Urobilinogen Normal Negative mg/dL Urine Leukocyte Esterase Negative Negative /uL Urine RBC 1 0 - 3 /hpf Urine Microscopic WBC < 1 0-3 /HPF Urine Squamous Epithelial Cells None seen <5 /hpf Urine Bacteria None seen None Seen /hpf Urine Glucose Normal Normal mg/dL Urine Opiates Screen Neg NEGATIVE Urine Fentanyl Screen Neg NEGATIVE Urine Barbiturates Screen Neg NEGATIVE Urine Phencyclidine Screen Neg NEGATIVE Urine Amphetamines Screen Pos NEGATIVE Urine Benzodiazepines Screen Neg NEGATIVE Urine Cocaine Screen Neg NEGATIVE Urine Cannabinoids Screen Neg NEGATIVE X-Ray, Labs, Meds, VS Comment EXTERNAL MEDICAL RECORDS REVIEWED: [NONE] INDEPENDENT HISTORIANS: [NONE] SOCIAL DETERMINANTS OF HEALTH: [NONE] LABS ORDERED: UA, UDS REVIEWED AND INTERPRETED RESULTS: METHAMPHETAMINE POSITIVE IMAGING ORDERED: NONE TREATMENTS ORDERED: NONE PROCEDURES PERFORMED: NONE CRITICAL CARE TIME: NONE I HAVE DISCUSSED THE PATIENT WITH THE ATTENDING PHYSICIAN DR. CUELLAR AND HE AGREES WITH THE PATIENT'S PLAN OF CARE AND DISPOSITION. BASED ON HISTORY OF PRESENT ILLNESS, AND PHYSICAL EXAM, PATIENT WILL BE DISCHARGED HOME. SHARED DECISION MAKING: PATIENT INSTRUCTED TO FOLLOW UP WITH PRIMARY CARE PROVIDER IN 1-2 DAYS FOR RE-EVALUATION OF SYMPTOMS. PATIENT VERBALIZES UNDERSTANDING TO RETURN TO ED FOR NEW OR WORSENING SYMPTOMS OR IF FOLLOW UP WITH PCP CANNOT BE OBTAINED. PATIENT FEELS COMFORTABLE GOING HOME AT THIS TIME. ALL QUESTIONS ADDRESSED AT TIME OF DISCHARGE. Time of 1ST Reevaluation: 14:02 Reevaluation 1ST: Improved Patient Education/Counseling: Diagnosis, Treatment, Need For Follow Up Family Education/Counseling: Diagnosis, Treatment, Need For Follow Up Medical Screening: No EMC Exist At This Time Departure 1 Departure Time of Disposition: 14:02 Impression: Primary Impression: UTI symptoms Additional Impression: Methamphetamine abuse Disposition: 01 HOME / SELF CARE / HOMELESS Condition: Stable Additional Instructions: FOLLOW-UP WITH PCP IN 1 TO 2 DAYS. RETURN TO ED FOR ANY NEW OR WORSENING SYMPTOMS. e-Prescriptions No Active Prescriptions or Reported Meds Discharged With: Self Critical Care Note Critical Care Time?: No Stability Stability form required: No I personally scribed for MONTSE COHN ([email or web address]) on 06/24/24 at 13:31. Electronically submitted by Darshan Loredo ([email or web address]). I personally scribed for MONTSE COHN ([email or web address]) on 06/24/24 at 13:54. Electronically submitted by Darshan Loredo ([email or web address]). MONTSE COHN Jun 24, 2024 13:31
[2024-06-24 13:39] LABS: Urine Blood Negative /uL (Negative); Urine Clarity Clear (Clear); Urine Color Light-Yellow (Yellow); Urine Protein, UAD Negative (Negative); Urine Specific Gravity 1.013 (1.001-1.035); Urine Squamous Epithelial Cell None Seen /hpf (<5); Urine Urobilinogen Normal (Negative)
[2024-06-24 13:49] LABS: Amphetamine Screen, Urine Pos (NEGATIVE); Barbiturate Scree,Urine Neg (NEGATIVE); Benzodiazephine Screen, Urine Neg (NEGATIVE); Cannabinoid Screen, Urine Neg (NEGATIVE); Cocaine Screen, Urine Neg (NEGATIVE); Opiate Scree,Urine Neg (NEGATIVE); Phencyclidine Screen, Urine Neg (NEGATIVE); Urine WBC < 1 /HPF (0-3)
== END 2024-06-24 14:04 | disposition home or self-care (01) ==
LOC: ER 11:35
DX: R35.0 Frequency of micturition (principal); R39.15 Urgency of urination; F15.10 Other stimulant abuse, uncomplicated; F17.210 Nicotine dependence, cigarettes, uncomplicated; Z59.00 Homelessness unspecified
CPT/HCPCS: 80307; 81001

== ENCOUNTER 2024-07-02 15:09 | Emergency (ER) | payer MEDICAID ==
[~2024-07-02] VITALS: Ht 167.6 cm; Wt 65.7 kg
--- NOTE | 2024-07-02 15:52 | DVH ---
EXAM: CT CT AB PEL WO CON-NO ORAL OR IV HISTORY: abd pain COMPARISON: CT CT AB PEL WO CON-NO ORAL OR IV on DOS: 04/21/24, CT CT AB PEL WO CON-NO ORAL OR IV on D OS: 03/12/24 TECHNIQUE: Helical CT images of the abdomen and pelvis were performed without IV contrast. Sagittal a nd coronal reformatted images were obtained. This CT exam was performed using one or more of the foll owing dose reduction techniques: Automated exposure control, adjustment of the mA and/or kv according to patient size, or the use of iterative reconstruction techniques. Radiation Dose: Abdomen/Pelvis: CTDIvol 7.16 mGy, DLP 342.03 mGy*cm. FINDINGS: CT abdomen: The lung bases are clear. The heart is not enlarged. The liver measures 19 cm longitudina l. The noncontrast spleen, gallbladder, pancreas, and adrenal glands are unremarkable. There are punc wilson bilateral renal nonobstructing calculi. No abdominal aortic aneurysm. The stomach is distended w ith ingested food. CT pelvis: No abnormal bowel dilatation, free air, or free fluid. There is fecal retention in the asc ending colon and transverse colon and rectum. The appendix is not dilated. The prostate is mildly enl arged. The urinary bladder wall is mildly diffusely thickened, although the urinary bladder is not f ully distended. There is a small left inguinal indirect hernia. There is a lumbosacral transitional v ertebrae. There is mild lumbar degenerative disc disease and facet arthropathy. IMPRESSION: 1. Mild hepatomegaly. 2. Fecal retention in the colon suggestive of constipation. 3. Nonobstructing bilateral nephrolithiasis. 4. Mild urinary bladder wall thickening may be due to cystitis versus artifactual appearance due to l ack of luminal distention. 5. No prostatic enlargement. 6. No evidence of bowel obstruction, acute appendicitis, or other acute process in the abdomen or pel vis.
--- NOTE | 2024-07-02 16:04 | ED.PDOC ---
GI ASSESSMENT HPI Comments 53y M who presents to the ED for chief complaint of abdominal pain. - pt states he has been having RUQ abdominal pain for the past 2 days - pt states the pain is constant, rating the pain 6/10, non-radiating, with no associated exacerbating or relieving factors. However patient does not appear to be in any distress. - pt has associated nonspecific mild diarrhea but otherwise denies nausea, vomiting, dysuria, hematuria, hematemesis, fever cough, chills, chest pain or shortness of breath - pt otherwise denies any other symptoms at this time. Past medical history: Homelessness, methamphetamine abuse, alcohol abuse. past surgical history: denies Medications: denies Allergies: nkda Social history: HPI: Poor Historian. Patient had two beers prior to arrival. Patient is smells like alcohol. Last use of methamphetamine was four days ago. REVIEW OF SYSTEMS: CONSTITUTIONAL: Denies acute: fever, diaphoresis, chills, generalized weakness. HEAD: Denies acute: headache, photophobia Eyes: Denies acute: Double vision, vision loss, eye pain, eye discharge. EARS: Denies acute: tinnitus, hearing loss, ear discharge, ear pain, THROAT: Denies acute: sore throat, swelling, difficulty swallowing , pain with swallowing, change in voice. NECK: Denies acute: neck pain, neck swelling, stiff neck. HEART: Denies acute : chest pain, palpitations, LUNGS: Denies acute: SOB, wheezing, cough, hemoptysis ABDOMEN: Denies acute: Nausea, Vomiting, , melena , hematemesis, hematochezia SKIN: Denies acute: rash, redness, lesions, itchiness. EXTREMITIES: Denies acute: calf pain, numbness, tingling, weakness, denies pain in extremity. Denies acute: Low back pain. Neuro: Denies acute: focal neurological deficit, motor or sensory focal neurological deficit, tremors, seizure like activity, confusion, dizziness, change in mental status, loss of bowel or bladder function, cauda equina like symptoms. : Denies acute: dysuria, hematuria, flank pain, increase in urinary frequency. PSYCH: Denies acute: hallucination, suicidal ideation, homicidal ideation. PHYSICAL EXAM: General: ---no-----acute distress, awake and alert. Foul odor and looks and smells like a homeless person. Head: normocephalic, atraumatic. Neck: supple, trachea is midline, no swelling. Throat: Normal phonation. Eyes:, no erythema, no purulent discharge, no proptosis, no icterus. Heart: regular rate, regular rhythm, no significant murmur appreciated. Lungs: no apparent respiratory distress, Able to speak in full sentences. No wheezing, no rhonchi, no crackles. No stridors Clear to auscultation bilaterally. Abdomen: Minimal right upper quadrant tender to palpation, non distended, soft, no guarding, no rebound, + bowel sounds. Neuro: Awake, Alert, oriented to name, self, situation, follows commands GCS=15. Speech is normal. Skin: no petechia, no purpura, no cyanosis, non-pale, not jaundice. Lower extremities: --no - Pitting edema no deformity, no focal swelling, no calf TTP. Makes eye contact. moves all four extremities. Face: no apparent facial droop. Ambulating in the ED independently. ED COURSE: Chief Complaint: Abdominal Pain Time Seen by MD: 16:03 Primary Care Provider: NONE Reviewed Notes: Nurses Notes, Medications, Allergies Allergies: Coded Allergies: NO KNOWN ALLERGIES (Unverified , 03/12/24) Home Meds Active Scripts Ciprofloxacin Hcl (Cipro) 500 Mg Tab, 500 MG PO BID for 7 Days, #14 TAB Prov:MOE LOPEZ Vicki DE LEÓN 07/02/24 Information Source: Patient Mode of Arrival: Ambulatory Brought in by: self Past Medical History PAST MEDICAL HISTORY: Anxiety Surgical History: Denies all surgeries Family History Family History: Reviewed,noncontributory to illness Social History Smoker: Cigarettes, Less Than 1 Pack/Day Alcohol: Occasionally Drugs: Methamphetamine Lives In: Homeless Was a procedure done? Was a procedure done?: No GI differential Dx Differential Diagnosis: Other (DDX include but not limited to diverticulitis, colitis, gastroenteritis, acute abdomen, SBO, enteritis, constipation, volvulus, appendicitis, Gallbladder disease, choledocolithiasis, ascending cholangitis, pancreatitis, intraAbdominal mass/neoplasm, hepatitis, UTI, pylonephritis, kidney stone, aneurysm, dissection, Inflammatory bowel disease, gastroparesis, ischemic bowel.) X-Ray, Labs, Meds, VS Vital Signs Date Time Temp Pulse Resp B/P (MAP) Pulse Ox O2 Delivery O2 Flow Rate FiO2 07/02/24 15:48 98.1 95 18 121/79 (93) 97 98.1 Lab Test 07/02/24 15:51 07/02/24 15:32 Range/Units Urine Color Colorless Yellow Urine Clarity Clear Clear Urine pH 5.5 5.0-9.0 Urine Specific Brimson 1.003 1.001-1.035 Urine Protein Negative Negative Urine Ketones Negative Negative Urine Blood Negative Negative /uL Urine Nitrite Negative Negative Urine Bilirubin Negative Negative Urine Urobilinogen Normal Negative mg/dL Urine Leukocyte Esterase Negative Negative /uL Urine RBC <1 0 - 3 /hpf Urine Microscopic WBC Pending Urine Squamous Epithelial Cells None seen <5 /hpf Urine Bacteria Few H None Seen /hpf Urine Glucose Normal Normal mg/dL Urine Opiates Screen Neg NEGATIVE Urine Fentanyl Screen Neg NEGATIVE Urine Barbiturates Screen Neg NEGATIVE Urine Phencyclidine Screen Neg NEGATIVE Urine Amphetamines Screen Pos NEGATIVE Urine Benzodiazepines Screen Neg NEGATIVE Urine Cocaine Screen Neg NEGATIVE Urine Cannabinoids Screen Neg NEGATIVE White Blood Count 8.1 4.4-10.8 10^3/uL Red Blood Count 5.16 4.5-5.90 10^6/uL Hemoglobin 13.8 13.5-17.5 g/dL Hematocrit 42.2 41.0-53.0 % Mean Corpuscular Volume 81.9 80.0-100.0 fL Mean Corpuscular Hemoglobin 26.7 L 28.0-32.0 pg Mean Corpuscular Hemoglobin Concent 32.7 32.0-36.0 g/dL Red Cell Distribution Width 14.6 H 11.8-14.3 % Platelet Count 361 140-450 10^3/uL Mean Platelet Volume 7.2 6.9-10.8 fL Neutrophils (%) (Auto) 55.1 37.0-80.0 % Lymphocytes (%) (Auto) 27.8 10.0-50.0 % Monocytes (%) (Auto) 8.6 0.0-12.0 % Eosinophils (%) (Auto) 7.2 H 0.0-7.0 % Basophils (%) (Auto) 1.3 0.0-2.0 % Neutrophils # (Auto) 4.5 1.6-8.6 10 ^3/uL Lymphocytes # (Auto) 2.3 0.4-5.4 10 ^3/uL Monocytes # (Auto) 0.7 0-1.3 10 ^3/uL Eosinophils # (Auto) 0.6 0-0.8 10 ^3/uL Basophils # (Auto) 0.1 0-0.2 10 ^3/uL Nucleated Red Blood Cells 0.0 % Sodium Level 140 136-145 mmol/L Potassium Level 3.8 3.5-5.1 mmol/L Chloride Level 106 98-107 mmol/L Carbon Dioxide Level 24 20-31 mmol/L Anion Gap 10 5-15 Blood Urea Nitrogen 10 9-23 mg/dL Creatinine 0.70 0.700-1.30 mg/dL Glomerular Filtration Rate Calc 112 >90 mL/min BUN/Creatinine Ratio 14.3 10.0-20.0 Serum Glucose 100 74-106 mg/dL Lactic Acid Level 1.2 0.4-2.0 mmol/L Calcium Level 9.1 8.7-10.4 mg/dL Total Bilirubin 0.3 0.2-1.0 mg/dL Aspartate Amino Transferase (AST) 9 L 13-40 U/L Alanine Aminotransferase (ALT) 11 7-40 U/L Alkaline Phosphatase 112 46-116 U/L Troponin I High Sensitivity 4 </=54 ng/L Total Protein 6.6 5.7-8.2 g/dL Albumin 4.5 3.2-4.8 g/dL Lipase 75 H 12-53 U/L [place] [address] Ph: [phone] DIAGNOSTIC IMAGING Diagnostic Imaging Report : [id number] Signed PATIENT: FOSTER LAST ACCT: [id number] UNIT: [id number] : 1970 LOC: ER ROOM / BED: / AGE / SEX: 53 / M ADM STATUS: REG ER SERVICE 1514 ORDERING PHYSICIAN: MOE LOPEZ DO PROCEDURE(s): ABPL - CT AB PEL WO CON-NO ORAL OR IV REASON: abd pain ORDER NUMBER(s): [id number], ACCESSION NUMBER(s): [id number] EXAM: CT CT AB PEL WO CON-NO ORAL OR IV HISTORY: abd pain COMPARISON: CT CT AB PEL WO CON-NO ORAL OR IV on DOS: 04/21/24, CT CT AB PEL WO CON-NO ORAL OR IV on DOS: 03/12/24 TECHNIQUE: Helical CT images of the abdomen and pelvis were performed without IV contrast. Sagittal and coronal reformatted images were obtained. This CT exam was performed using one or more of the following dose reduction techniques: Automated exposure control, adjustment of the mA and/or kv according to patient size, or the use of iterative reconstruction techniques. Radiation Dose: Abdomen/Pelvis: CTDIvol 7.16 mGy, DLP 342.03 mGy*cm. FINDINGS: CT abdomen: The lung bases are clear. The heart is not enlarged. The liver measures 19 cm longitudinal. The noncontrast spleen, gallbladder, pancreas, and adrenal glands are unremarkable. There are punctate bilateral renal nonobstructing calculi. No abdominal aortic aneurysm. The stomach is distended with ingested food. CT pelvis: No abnormal bowel dilatation, free air, or free fluid. There is fecal retention in the ascending colon and transverse colon and rectum. The appendix is not dilated. The prostate is mildly enlarged. The urinary bladder wall is mildly diffusely thickened, although the urinary bladder is not fully distended. There is a small left inguinal indirect hernia. There is a lumbosacral transitional vertebrae. There is mild lumbar degenerative disc disease and facet arthropathy. IMPRESSION: 1. Mild hepatomegaly. 2. Fecal retention in the colon suggestive of constipation. 3. Nonobstructing bilateral nephrolithiasis. 4. Mild urinary bladder wall thickening may be due to cystitis versus artifactual appearance due to lack of luminal distention. 5. No prostatic enlargement. 6. No evidence of bowel obstruction, acute appendicitis, or other acute process in the abdomen or pelvis. ATED BY: GABRIELA GARCIA MD DICTATED DATE/TIME: 07/02/24 1549 SIGNED BY: GABRIELA GARCIA MD SIGNED DATE/TIME: 07/02/24 1549 CC: Time of 1ST Reevaluation: 17:06 Reevaluation 1ST: Unchanged Patient Education/Counseling: Diagnosis, Treatment Family Education/Counseling: No Family Present Comments Patient presented with the above HPI.---abdominal pain---workup was initiated. patient was found with the above mentioned diagnosis. the following medications were ordered: please refer to order lists of meds and tests obtained by myself Dr. Lopez. Patient ED course and VS have been stabilized. Patient has been reassessed in the ED and remained in a stable condition. Pertinent incidental findings were discussed with the patient and/or family. Patient/family voices understanding and is agreeable with plan. Patient has been observed in the ED adequate length of time to insure improvement/stability. Escalation of care considered: Consideration of escalation to observation or admission Possible UTI. I sent the patient home on antibiotics to cover for potential UTI and possible GI infectious process. Patient was DISCHARGED home in a stable condition. All the reports of any imaging studies that were ordered by myself were reviewed by myself. Departure 1 Departure Time of Disposition: 16:07 Impression: Primary Impression: Acute abdominal pain Additional Impressions: Constipation Homelessness Urinary tract infection Methamphetamine abuse Disposition: HOME / SELF CARE / HOMELESS Condition: Stable Additional Instructions: Additional discharge instructions: You MUST follow-up with your primary care/family doctor in 1 to 2 days. If you are unable to see your primary care/family doctor, please return to our emergency room for re-assessment and re-evaluation in 1 to 2 days. Return to the emergency room here in our facility or to the nearest ER [facility] if your symptoms change or worsen. CONSULTATIONS: you MUST Follow-up for consultation as soon as possible with: -gastroenterology in 1-2 days. Please call for appointment. You MUST call the consultants office yourself to make an appointment. You may need to arrange that through your insurance and/or your primary/family doctor. If you are unable to see the environmental remediation consultant in 1 to 2 days, you must return to our emergency room (or any other ER of your choice) for re-assessment and re- evaluation. Adequate fluid hydration. Clear liquid diet in next 72 hours. Increase fiber intake. Below is a copy of your radiological report for follow up: [address] [address] Ph: [phone] DIAGNOSTIC IMAGING Diagnostic Imaging Report : [id number] Signed PATIENT: FOSTER LAST ACCT: [id number] UNIT: [id number] : 1970 LOC: ER ROOM / BED: / AGE / SEX: 53 / M ADM STATUS: REG ER SERVICE 1514 ORDERING PHYSICIAN: MOE LOPEZ DO PROCEDURE(s): ABPL - CT AB PEL WO CON-NO ORAL OR IV REASON: abd pain ORDER NUMBER(s): [id number], ACCESSION NUMBER(s): [id number] EXAM: CT CT AB PEL WO CON-NO ORAL OR IV HISTORY: abd pain COMPARISON: CT CT AB PEL WO CON-NO ORAL OR IV on DOS: 04/21/24, CT CT AB PEL WO CON-NO ORAL OR IV on DOS: 03/12/24 TECHNIQUE: Helical CT images of the abdomen and pelvis were performed without IV contrast. Sagittal and coronal reformatted images were obtained. This CT exam was performed using one or more of the following dose reduction techniques: Automated exposure control, adjustment of the mA and/or kv according to patient size, or the use of iterative reconstruction techniques. Radiation Dose: Abdomen/Pelvis: CTDIvol 7.16 mGy, DLP 342.03 mGy*cm. FINDINGS: CT abdomen: The lung bases are clear. The heart is not enlarged. The liver measures 19 cm longitudinal. The noncontrast spleen, gallbladder, pancreas, and adrenal glands are unremarkable. There are punctate bilateral renal nonobstructing calculi. No abdominal aortic aneurysm. The stomach is distended with ingested food. CT pelvis: No abnormal bowel dilatation, free air, or free fluid. There is fecal retention in the ascending colon and transverse colon and rectum. The appendix is not dilated. The prostate is mildly enlarged. The urinary bladder wall is mildly diffusely thickened, although the urinary bladder is not fully distended. There is a small left inguinal indirect hernia. There is a lumbosacral transitio nal vertebrae. There is mild lumbar degenerative disc disease and facet arthropathy. IMPRESSION: 1. Mild hepatomegaly. 2. Fecal retention in the colon suggestive of constipation. 3. Nonobstructing bilateral nephrolithiasis. 4. Mild urinary bladder wall thickening may be due to cystitis versus artifactual appearance due to lack of luminal distention. 5. No prostatic enlargement. 6. No evidence of bowel obstruction, acute appendicitis, or other acute process in the abdomen or pelvis. ATED BY: GABRIELA GARCIA MD DICTATED DATE/TIME: 07/02/24 1549 SIGNED BY: GABRIELA GARCIA MD SIGNED DATE/TIME: 07/02/24 1549 CC: e-Prescriptions Ciprofloxacin Hcl (Cipro) 500 Mg Tab 500 MG PO BID for 7 Days, #14 TAB Prov: MOE LOPEZ DO 07/02/24 Discharged With: Self Critical Care Note Critical Care Time?: No I personally scribed for MOE LOPEZ DO ([email or web address]) on 07/02/24 at 16:04. Electronically submitted by Caleb Broussard ([facility] [place]). MOE LOPEZ DO Jul 02, 2024 16:04
[2024-07-02 16:19] LABS: Basophils # (auto) 0.1 10 ^3/uL (0-0.2); Basophils % (auto) 1.3 % (0.0-2.0); Eosinophils # (auto) 0.6 10 ^3/uL (0-0.8); Eosinophils % (auto) 7.2 % (0.0-7.0); Hematocrit 42.2 % (41.0-53.0); Hemoglobin 13.8 g/dL (13.5-17.5); Lymphocytes # (auto) 2.3 10 ^3/uL (0.4-5.4); Lymphocytes % (auto) 27.8 % (10.0-50.0); Mean Corpuscular Hemoglobin 26.7 pg (28.0-32.0); Mean Corpuscular Hgb Conc. 32.7 g/dL (32.0-36.0); Mean Corpuscular Volume 81.9 fL (80.0-100.0); Monocytes # (auto) 0.7 10 ^3/uL (0-1.3); Monocytes % (auto) 8.6 % (0.0-12.0); Neutrophils # (auto) 4.5 10 ^3/uL (1.6-8.6); Neutrophils % (auto) 55.1 % (37.0-80.0); Platelet Count (auto) 361 10^3/uL (140-450); Red Blood Cells 5.16 10^6/uL (4.5-5.90); Red Cell Distribution Width 14.6 % (11.8-14.3); White Blood Cell 8.1 10^3/uL (4.4-10.8)
[2024-07-02 16:34] LABS: Alanine Aminotransferase 11 U/L (7-40); Albumin 4.5 g/dL (3.2-4.8); Alkaline Phosphatase 112 U/L (46-116); Anion Gap 10 (5-15); BUN/Creatinine Ratio 14.3 (10.0-20.0); Blood Urea Nitrogen 10 mg/dL (9-23); Calcium 9.1 mg/dL (8.7-10.4); Carbon Dioxide 24 mmol/L (20-31); Chloride 106 mmol/L (98-107); Glucose 100 mg/dL (74-106); Potassium 3.8 mmol/L (3.5-5.1); Sodium 140 mmol/L (136-145); Total Protein 6.6 g/dL (5.7-8.2)
[2024-07-02 16:43] LABS: Urine Bacteria FEW /hpf (None Seen); Urine Blood Negative /uL (Negative); Urine Clarity Clear (Clear); Urine Color Colorless (Yellow); Urine Protein, UAD Negative (Negative); Urine Specific Gravity 1.003 (1.001-1.035); Urine Squamous Epithelial Cell None Seen /hpf (<5); Urine Urobilinogen Normal (Negative); Urine pH 5.5 (5.0-9.0)
[2024-07-02 16:44] LABS: Aspartate Aminotransferase 9 U/L (13-40); Bilirubin, Total 0.3 mg/dL (0.2-1.0); Lipase 75 U/L (12-53)
[2024-07-02] MEDS ORDERED: CIPR-173 PO (16:55)
[2024-07-02 16:58] LABS: Amphetamine Screen, Urine Pos (NEGATIVE)
[2024-07-02 17:01] LABS: Barbiturate Scree,Urine Neg (NEGATIVE); Benzodiazephine Screen, Urine Neg (NEGATIVE); Cannabinoid Screen, Urine Neg (NEGATIVE); Cocaine Screen, Urine Neg (NEGATIVE); Opiate Scree,Urine Neg (NEGATIVE); Phencyclidine Screen, Urine Neg (NEGATIVE)
[2024-07-02 17:34] LABS: Urine WBC 6 /HPF (0-3)
[2024-07-02 17:44] VITALS: BP 120/90; PULSE 94; RESP 20; TEMP 97.9; O2SAT 97
== END 2024-07-02 17:47 | disposition home or self-care (01) ==
LOC: ER 15:09
DX: R10.11 Right upper quadrant pain (principal); K59.00 Constipation, unspecified; N39.0 Urinary tract infection, site not specified; F15.10 Other stimulant abuse, uncomplicated; F17.210 Nicotine dependence, cigarettes, uncomplicated; F41.9 Anxiety disorder, unspecified; Z79.899 Other long term (current) drug therapy
CPT/HCPCS: 36415; 74176; 80053; 80307; 81001; 83605; 83690; 84484; 85025